=== PATIENT | female | born 1945 | race Caucasian/White ===

== ENCOUNTER 2021-01-27 09:37 | Outpatient (REF) | payer SELFPAY | END 2021-01-27 09:38 | disposition home or self-care (01) | LOC: HO.HAP 09:37 | PROVIDERS: Visit Provider Family Medicine | DX: Z46.1 Encounter for fitting and adjustment of hearing aid (principal) | CPT/HCPCS: V5267 ==

== ENCOUNTER 2021-02-09 06:30 | Day surgery (SDC) | payer MEDICARE, SELFPAY ==
[2021-02-03 12:53] VITALS: BMI 27.8
--- NOTE | 2021-02-08 07:47 | P.CONAN_ITS ---
Documented by User: Anastasiya Mccormack 02/08/21 07:48 HPI - Anesthesia Eval Consult details Narrative: 75yo F for Colonoscopy PMFSH Past Medical History Medical History (Updated 02/09/21 @ 07:37 by Kasia Hernandez) Breast cancer History of paralysis Hyperlipidemia Hypothyroid Vertigo Surgical History Surgical History History of total left hip replacement History of total right hip replacement Hx of bilateral cataract extraction Hx of bilateral oophorectomy Hx of colonoscopy Hx of left mastectomy Hx of right mastectomy Hx of tonsillectomy Social History Social History Are you a primary clinical care manager to a significant other at home: No Do you presently have visiting nurse or other home services: No Smoking Status: Never smoker Use of substances other than those prescribed or required for medical reasons: No Have you been hit, kicked, punched, or otherwise hurt by someone within the past year? If so, by whom?: No Advance Directives: No Advance Directives Information Provided: No Advance Directives on File: No Recently lost weight without trying: No Meds Allergies Allergy/AdvReac Type Severity Reaction Status Date / Time amoxicillin Allergy itching, Verified 02/09/21 06:42 yeast infection codeine Allergy Hives Verified 02/09/21 06:42 ether Allergy paralysis Verified 02/09/21 06:42 hydromorphone Allergy Hypotension Verified 02/09/21 06:42 transparent dressing Allergy Rash Verified 02/09/21 06:42 [Tegaderm] clindamycin AdvReac Diarrhea Verified 02/09/21 06:42 naproxen [From Naprosyn] AdvReac Diarrhea Verified 02/09/21 06:42 Home Medications Medication Instructions Recorded Confirmed Last Taken Type aspirin [Aspir-81] 81 mg PO DAILY 02/03/21 02/03/21 Unknown History atorvastatin 1 tab PO DAILY 02/03/21 02/03/21 Unknown History calcium carbonate-vitamin D3 1 tab PO DAILY 02/03/21 02/03/21 Unknown History [Caltrate 600 plus D] coenzyme Q10 [CoQ-10] 200 mg PO DAILY 02/03/21 02/03/21 Unknown History diazepam 1 tab PO DAILY PRN 02/03/21 02/03/21 Unknown History ibuprofen 1 tab PO TID 02/03/21 02/03/21 Unknown History levothyroxine [Synthroid] 1 tab PO DAILY 02/03/21 02/09/21 02/09/21 06:00 History xrcwqphiprts-svhwsegs-yjppma 1 tab PO DAILY 02/03/21 02/03/21 Unknown History [Centrum Silver] Exam Exam Date and Time: February 08, 2021 0747 Height,Weight and Vital Signs: Height 5 ft 2.5 in Weight 70.307 kg Assessment and Plan Assessment Anesthesia Assessment: Chart Reviewed Documented by User: Kasia Hernandez 02/09/21 07:41 PMFSH Past Medical History Medical History (Updated 02/09/21 @ 07:37 by Kasia Hernandez) Breast cancer History of paralysis Hyperlipidemia Hypothyroid Vertigo Family History Family history of problems with anesthesia: No Surgical History Surgical History History of total left hip replacement History of total right hip replacement Hx of bilateral cataract extraction Hx of bilateral oophorectomy Hx of colonoscopy Hx of left mastectomy Hx of right mastectomy Hx of tonsillectomy History of Problems with Anesthesia: No (But see note above) Social History Social History Are you a primary clinical care manager to a significant other at home: No Do you presently have visiting nurse or other home services: No Smoking Status: Never smoker Use of substances other than those prescribed or required for medical reasons: No Have you been hit, kicked, punched, or otherwise hurt by someone within the past year? If so, by whom?: No Advance Directives: No Advance Directives Information Provided: No Advance Directives on File: No Recently lost weight without trying: No Meds Allergies Allergy/AdvReac Type Severity Reaction Status Date / Time amoxicillin Allergy itching, Verified 02/09/21 06:42 yeast infection codeine Allergy Hives Verified 02/09/21 06:42 ether Allergy paralysis Verified 02/09/21 06:42 hydromorphone Allergy Hypotension Verified 02/09/21 06:42 transparent dressing Allergy Rash Verified 02/09/21 06:42 [Tegaderm] clindamycin AdvReac Diarrhea Verified 02/09/21 06:42 naproxen [From Naprosyn] AdvReac Diarrhea Verified 02/09/21 06:42 Home Medications Medication Instructions Recorded Confirmed Last Taken Type aspirin [Aspir-81] 81 mg PO DAILY 02/03/21 02/03/21 Unknown History atorvastatin 1 tab PO DAILY 02/03/21 02/03/21 Unknown History calcium carbonate-vitamin D3 1 tab PO DAILY 02/03/21 02/03/21 Unknown History [Caltrate 600 plus D] coenzyme Q10 [CoQ-10] 200 mg PO DAILY 02/03/21 02/03/21 Unknown History diazepam 1 tab PO DAILY PRN 02/03/21 02/03/21 Unknown History ibuprofen 1 tab PO TID 02/03/21 02/03/21 Unknown History levothyroxine [Synthroid] 1 tab PO DAILY 02/03/21 02/09/21 02/09/21 06:00 History squxanxkgexe-zzvazmeu-srrjal 1 tab PO DAILY 02/03/21 02/03/21 Unknown History [Centrum Silver] Exam Height,Weight and Vital Signs: Vital Signs Temp Pulse Resp BP Pulse Ox 02/09/21 06:44 97.6 F 80 20 163/85 H 96 Airway Mallampati Class: II TM Dist: >3cm Neck ROM: Full Heart: RRR Lungs: CTAB Assessment and Plan Assessment Anesthesia Assessment: Anesthesia Plan Discussed and Chart Reviewed Final Anesthetic Review NPO: Yes ASA Class: II Final Preanesthetic Review: No Changes in Pt Med Stat, Meds/Allgs Chart Reviewed, Consent Obtained/Reviewed and Anes Risks/Benef Reviewed Patient Risk: Low Procedure Risk: Low Assessment/Block/Sedation in SS: Assess/Block/Sedation-SS Anesthetic Plan Anesthetic Plan: MAC: Disposition: Standard PACU
[2021-02-09 06:44] VITALS: BP 163/85; PULSE 80; RESP 20; TEMP 36.4; O2SAT 96
[2021-02-09] MEDS: Lactated Ringers 1,000 ML 100 ML IVCONT (07:13)
[2021-02-09 08:31] VITALS: BP 91/41; PULSE 75; RESP 12; TEMP 36.8; O2SAT 95
--- NOTE | 2021-02-09 08:33 | PM.OP ---
Brief Operative Note Date of Service: 02/09/21 Pre-op diagnosis: Screening Post-op diagnosis: other (Colon polyp) Procedure: Colonoscopy to cecum and TI with biopsy and removal of polyp Surgeon: Paolo Samano Anesthesia: MAC Estimated blood loss (mL): 2.0 Pathology: other (A. Ascending colon polyp) Condition: stable Disposition: PACU
[2021-02-09 08:46] VITALS: BP 96/60; PULSE 69; RESP 17; TEMP 36.3; O2SAT 98
[2021-02-09 08:51] VITALS: BP 111/60; PULSE 67; RESP 17; O2SAT 97
--- NOTE | 2021-02-09 19:29 | OP_ITS ---
SURGEON: Paolo Samano MD INDICATIONS: The patient presents for evaluation of personal history of tubular adenoma of the colon, family history of colon cancer, and colorectal cancer screening. Full consent has been obtained from her for this, including risks of bleeding and perforation. PREOPERATIVE DIAGNOSIS: POSTOPERATIVE DIAGNOSIS: PROCEDURE PERFORMED: Colonoscopy to cecum and terminal ileum with biopsy and removal of polyp. ESTIMATED BLOOD LOSS: COMPLICATIONS: ANESTHESIA: Monitored anesthesia care. ASSISTANTS: SPECIMENS: PREOPERATIVE DIAGNOSES: Colorectal cancer screening, family history of colon cancer, personal history of tubular adenoma of the colon. POSTOPERATIVE DIAGNOSES: Colorectal cancer screening, family history of colon cancer, personal history of tubular adenoma of the colon, small colon polyp, sigmoid diverticulosis, and internal hemorrhoids. DESCRIPTION OF PROCEDURE: The patient was placed in the left lateral decubitus position. The digital rectal exam revealed no abnormalities. The Olympus video pediatric colonoscope was entered into the rectum and advanced easily to the cecum. Once in the cecum, I did identify normal-appearing cecal pouch with appendiceal orifice and a normal-appearing ileocecal valve. The terminal ileum was cannulated and appeared normal. The scope was withdrawn back in the colon. The entire cecum and ileocecal valve appeared normal. The scope was slowly withdrawn assessing all mucosal surfaces carefully. Preparation was excellent. In the proximal ascending colon, there was a flat 3 mm polyp, which was biopsied and completely removed with cold biopsy forceps. I did not visualize any other polyps, colitis, nor angiodysplasia. There was a mild amount of sigmoid diverticulosis. In the rectum, scope was retroflexed visualizing small internal hemorrhoids, but no other pathology. The rectal mucosa appeared normal. The scope was straightened and withdrawn from the patient. She tolerated the procedure well and was returned to recovery area in stable condition. IMPRESSION: 1. Small colon polyp, status post biopsy removal. 2. Sigmoid diverticulosis. 3. Internal hemorrhoids. PLAN: The results of biopsies will be checked. Given this minimal finding and her age, I do not think she will need any further screening colonoscopies. She will otherwise see me on a p.r.n. basis. CC: Won. MD TOYIN Doran/CADY / [phone]
== END 2021-02-09 09:25 | disposition home or self-care (01) ==
PROVIDERS: PCP Family Medicine; Visit Provider Internal Medicine
PROC: 0DJD8ZZ Inspection of Lower Intestinal Tract, Via Natural or Artificial Opening Endoscopic (ICD-10-PCS; CPT 45378; principal; 2021-02-09 07:30)
DX: Z12.11 Encounter for screening for malignant neoplasm of colon (principal); Z80.0 Family history of malignant neoplasm of digestive organs; Z86.010 Personal history of colon polyps; K63.5 Polyp of colon; K57.30 Diverticulosis of large intestine without perforation or abscess without bleeding; K64.8 Other hemorrhoids; Z85.3 Personal history of malignant neoplasm of breast; Z79.82 Long term (current) use of aspirin; Z79.899 Other long term (current) drug therapy; Z88.0 Allergy status to penicillin; Z88.1 Allergy status to other antibiotic agents; Z88.8 Allergy status to other drugs, medicaments and biological substances
CPT/HCPCS: 45380; 88305

== ENCOUNTER 2021-09-01 12:45 | Outpatient (REF) | payer SELFPAY | END 2021-09-01 12:46 | disposition home or self-care (01) | LOC: HO.HAP 12:45 | PROVIDERS: Visit Provider Family Medicine | DX: Z46.1 Encounter for fitting and adjustment of hearing aid (principal); H90.3 Sensorineural hearing loss, bilateral | CPT/HCPCS: V5267 ==

== ENCOUNTER 2022-05-29 10:28 | Outpatient (REF) | payer SELFPAY | END 2022-05-29 10:29 | disposition home or self-care (01) | LOC: HO.HAP 10:28 | PROVIDERS: Visit Provider Family Medicine | DX: Z13.89 Encounter for screening for other disorder (principal) ==

== ENCOUNTER 2022-06-09 15:22 | Outpatient (REF) | payer SELFPAY | END 2022-06-09 15:23 | disposition home or self-care (01) | LOC: HO.HAP 15:22 | PROVIDERS: Visit Provider Family Medicine | DX: Z46.1 Encounter for fitting and adjustment of hearing aid (principal); H90.3 Sensorineural hearing loss, bilateral | CPT/HCPCS: V5014 ==

== ENCOUNTER 2022-09-13 11:55 | Outpatient (REF) | payer SELFPAY | END 2022-09-13 11:56 | disposition home or self-care (01) | LOC: HO.HAP 11:55 | PROVIDERS: Visit Provider Family Medicine | DX: Z46.1 Encounter for fitting and adjustment of hearing aid (principal); H90.3 Sensorineural hearing loss, bilateral | CPT/HCPCS: V5267 ==

== ENCOUNTER 2023-05-15 12:05 | Outpatient (REF) | payer SELFPAY | END 2023-05-15 12:06 | disposition home or self-care (01) | LOC: HO.HAP 12:05 | PROVIDERS: Visit Provider Family Medicine | DX: Z46.1 Encounter for fitting and adjustment of hearing aid (principal); H90.3 Sensorineural hearing loss, bilateral | CPT/HCPCS: V5267 ==

== ENCOUNTER 2023-05-28 14:26 | Outpatient (REF) | payer MEDICARE, SELFPAY | END 2023-05-28 14:27 | disposition home or self-care (01) | LOC: HO.SH 14:26 | PROVIDERS: Visit Provider Family Medicine | DX: Z01.118 Encounter for examination of ears and hearing with other abnormal findings (principal); H90.A21 Sensorineural hearing loss, unilateral, right ear, with restricted hearing on the contralateral side; H90.A32 Mixed conductive and sensorineural hearing loss, unilateral, left ear with restricted hearing on the contralateral side | CPT/HCPCS: 92557; 92567 ==

== ENCOUNTER 2023-05-28 15:47 | Outpatient (REF) | payer SELFPAY ==
--- NOTE | 2023-05-29 13:03 | MHC.AU.HA3 ---
Hearing Instrument Follow-Up- Binaural Date of Visit: 05/28/23 Right Ear: [place], Model, Color, Serial Number: Marc Iraheta [id number] SN: [id number] Color: [place] Technology Support Analyst Repair Warranty: 06/06/2023 (Remake due to broken shell included new 12 mos warranty) Technology Support Analyst Loss and Damage Warranty: 06/02/2021 Battery Size: 312 Type of Wax Guard: CeruStop Dispensed By: [facility] Date of Fittin05/06/2018 Left Ear: [place], Model, Color, Serial Number: Marc Iraheta [id number] with canal lock SN: [id number] Color: [place] Technology Support Analyst Repair Warranty: 06/02/2021 Technology Support Analyst Loss and Damage Warranty: 06/02/2021 Battery Size: 312 Type of Wax Guard: CeruStop Dispensed By: [facility] Date of Fittin05/06/2018 Follow-Up Summary: Desiree returned for routine hearing aid maintenance and reprogramming following updated audiogram (see separate report). Cleaned hearing aids. Replaced wax guards. Vacuumed microphones and ran through dehumidifier. A listening check demonstrated that the hearing aids are in good working order. Reviewed cleaning including brushing microphones, changing wax guard, and cleaning vent (provided green vent cleaning tool) at Desiree's request. Reprogrammed via [employer] due to change in hearing. Also briefly discussed new hearing aids. Desiree would like to try current hearing aids with programming adjustments first. If she decides to pursue new hearing aids here, she will call to schedule a hearing aid consultation knowing her hearing test is valid for six months. Recommendations: Hearing instrument follow-up or maintenance as needed. Diagnosis Code(s): Primary Diagnosis: H90.A21 SNHL, Unilateral Right Ear, W/Restricted Contralateral Hearing Secondary Diagnosis: H90.A32 Mixed HL, Unilateral, Left Ear, W/Restricted Contralateral Signature: Provider: Mk Briones, [facility]
== END 2023-05-28 15:48 | disposition home or self-care (01) ==
LOC: HO.HAP 15:47
PROVIDERS: Visit Provider Family Medicine
DX: Z46.1 Encounter for fitting and adjustment of hearing aid (principal); H90.A21 Sensorineural hearing loss, unilateral, right ear, with restricted hearing on the contralateral side; H90.A32 Mixed conductive and sensorineural hearing loss, unilateral, left ear with restricted hearing on the contralateral side
CPT/HCPCS: 92593

== ENCOUNTER 2023-06-01 15:25 | Outpatient (REF) | payer SELFPAY ==
--- NOTE | 2023-06-04 13:41 | MHC.AU.HA3 ---
Hearing Instrument Follow-Up- Binaural Date of Visit: 06/01/23 Right Ear: Make, Model, Color, Serial Number: Marc Iraheta [id number] SN: [id number] Color: [place] Machine Shop Supervisor Repair Warranty: 06/06/2023 (Remake due to broken shell included new 12 mos warranty) Machine Shop Supervisor Loss and Damage Warranty: 06/02/2021 Battery Size: 312 Type of Wax Guard: CeruStop Dispensed By: [facility] Date of Fittin05/06/2018 Left Ear: Make, Model, Color, Serial Number: Marc Iraheta [id number] with canal lock SN: [id number] Color: [place] Machine Shop Supervisor Repair Warranty: 06/02/2021 Machine Shop Supervisor Loss and Damage Warranty: 06/02/2021 Battery Size: 312 Type of Wax Guard: CeruStop Dispensed By: [facility] Date of Fittin05/06/2018 Follow-Up Summary: Desiree reported that since the programming changes at her last appointment, her left hearing aid has been making low-pitched whistling sounds when she is moving or is near a person or object. Initially attributed it to feedback but could not replicate in office. [place]an feedback restaurant assistant manager and decreased high frequencies slightly. No feedback noted in office; however, when Desiree was leaving and walking down the ramp, she reportedly heard the noise again. reportedly hears the noise as well. Walked down the ramp with Desiree and heard possible feedback; however, difficult to determine with other background noises outside. Plugged vent with vent plug with no improvement per Desiree. Removed vent plug and returned to previous settings from before updated hearing test at Desiree's request. Discussed left hearing aid not being optimally programmed for hearing loss; however, Desiree reported that she will rely on the changes to the right hearing aid for now. Recommendations: Hearing instrument follow-up or maintenance as needed. Patient will call if problems persist. Diagnosis Code(s):Primary Diagnosis: H90.A21 SNHL, Unilateral Right Ear, W/Restricted Contralateral Hearing Secondary Diagnosis: H90.A32 Mixed HL, Unilateral, Left Ear, W/Restricted Contralateral Signature: Provider: Mk Briones, [facility]
== END 2023-06-01 15:26 | disposition home or self-care (01) ==
LOC: HO.HAP 15:25
PROVIDERS: Visit Provider Family Medicine
DX: Z13.89 Encounter for screening for other disorder (principal)

== ENCOUNTER 2023-07-10 13:31 | Outpatient (REF) | payer SELFPAY ==
--- NOTE | 2023-07-10 15:51 | MHC.AU.HA3 ---
Hearing Instrument Follow-Up- Binaural Date of Visit: 07/10/23 Right Ear: [place], Model, Color, Serial Number: Marc Iraheta [id number] SN: [id number] Color: [place] Cable Supervisor Repair Warranty: 06/06/2023 (Remake due to broken shell included new 12 mos warranty) Cable Supervisor Loss and Damage Warranty: 06/02/2021 Battery Size: 312 Type of Wax Guard: CeruStop Dispensed By: [facility] Date of Fittin05/06/2018 Left Ear: [place], Model, Color, Serial Number: Marc Iraheta [id number] with canal lock SN: [id number] Color: [place] Cable Supervisor Repair Warranty: 06/02/2021 Cable Supervisor Loss and Damage Warranty: 06/02/2021 Battery Size: 312 Type of Wax Guard: CeruStop Dispensed By: [facility] Date of Fittin05/06/2018 Follow-Up Summary: Desiree reported that while she was trying to change the wax guard of her left hearing aid, the metal insert fell out and she could not locate it. Otoscopy clear, AU. With the missing insert, wax guards will no longer stay inserted into her left hearing aid. Advised that she can still use left hearing aid; however, wax may start to build up in the hearing aid. Discussed options of repairing vs replacing. Also reran feedback workforce investment act career manager on the right hearing aid to help with the noise Desiree continues to hear - Did not hear in office today. Desiree decided to proceed with new hearing aids - see separate Hearing Aid Evaluation report. Recommendations: Hearing instrument follow-up or maintenance as needed. Diagnosis Code(s): Primary Diagnosis: H90.A21 SNHL, Unilateral Right Ear, W/Restricted Contralateral Hearing Secondary Diagnosis: H90.A32 Mixed HL, Unilateral, Left Ear, W/Restricted Contralateral Signature: Provider: Mk Briones, [facility]
--- NOTE | 2023-07-10 16:00 | MHC.AU.HA1 ---
Hearing Aid Evaluation Date of Visit: 07/10/23 Historical Information: Description of Hearing: Right Ear: Within normal sloping to moderately-severe rising to moderate sensorineural hearing loss Left Ear: Mild sloping to severe mixed hearing loss Current personal amplification information: Phonak Virto B50-312 fit in May 2018 Summary: Desiree's left hearing aid no longer holds a wax guard. Discussed options including using as-is until too much wax builds up in hearing aid, repairing, using only right hearing aid due to poor discrimination on left, or purchasing new hearing aids. Desiree opted to pursue new hearing aids. Discussed unilateral vs bilateral fitting due to speech discrimination in left ear. Desiree still feels comfortable with two hearing aids and prefers to continue with bilateral fitting. Also discussed option for rechargeable custom hearing aids; however, Desiree would prefer to stay with the Phonak art librarian and battery-powered hearing aids. She also requested a canal lock on the left hearing aid only due to previous issues with retention. Hearing Aid Prescription: Based on the individual?s shared listening needs, communication environments, dexterity, desire for connectivity, and personal preferences, the following prescription for amplification has been made: Right ear: Make, Model, Color: Phonak Virto P50-312 Color: [place] Battery Size: 312 Left ear: Left ear prescription to be same as Right Hearing Aid above: Make, Model, Color: Phonak Virto P50-312 with canal lock Color: [place] Battery Size: 312 Plan of Care: Patient wishes to purchase hearing aids as prescribed Action Taken/Action Needed: [place] Impressions Taken without incident - Sent to [facility] as johnson order. Fitting scheduled 07/26/2023 Comments: Desiree requested a johnson order as she leaves for [place] at the beginning of October. Quoted $100.00 fee for [place] Primary Diagnosis: H90.A21 SNHL, Unilateral Right Ear, W/Restricted Contralateral Hearing Secondary Diagnosis: H90.A32 Mixed HL, Unilateral, Left Ear, W/Restricted Contralateral Signature: Provider: Mk Briones, [facility]
--- NOTE | 2023-07-10 16:02 | MHC.AU.MED ---
Medical Clearance for Hearing Instrumentation Date: 07/10/23 Patient Name: Desiree Kuhn Date of : 1945 Primary Care Provider: Rao Rizzo MD We have seen your patient on 07/10/23 and have determined that they are a candidate for amplification (See accompanying report). Specifically, they would benefit from: Hearing aid use in both ears There is a statute that addresses Medical Evaluation Requirements prior to fitting a patient with a hearing aid. According to [place] statute 265 CMR:6.03(1), (a) General. Except as provided in 265 CMR 6.03(1)(b), a hide salter shall not sell a hearing aid unless the prospective user has presented to the hide salter a written statement signed by a licensed physician that states that the patient's hearing loss has been medically evaluated and the patient may be considered a candidate for a hearing aid. The medical evaluation must have taken place within the preceding six months. Please note: Due to the [place] Statute referenced above, we cannot accept a signature other than that of a licensed physician. DATER ASSEMBLER and PA signatures cannot be accepted. I am in agreement with the above recommendation. There is no medical contraindication for hearing instrumentation. Physician Signature Date Physician Name (Printed)
== END 2023-07-10 13:32 | disposition home or self-care (01) ==
LOC: HO.HAP 13:31
PROVIDERS: Visit Provider Family Medicine
DX: Z46.1 Encounter for fitting and adjustment of hearing aid (principal); H90.3 Sensorineural hearing loss, bilateral
CPT/HCPCS: 92590

== ENCOUNTER 2023-07-10 14:50 | Outpatient (REF) | payer SELFPAY | END 2023-07-10 14:51 | disposition home or self-care (01) | LOC: HO.HAP 14:50 | PROVIDERS: Visit Provider Family Medicine | DX: Z13.89 Encounter for screening for other disorder (principal) ==

== ENCOUNTER 2023-08-01 08:53 | Outpatient (REF) | payer SELFPAY ==
--- NOTE | 2023-08-02 09:40 | MHC.AU.HA2 ---
Hearing Instrument Fitting- Adult- Binaural Date of Visit: 08/01/23 Hearing Instruments Dispensed: Right Ear: Make, Model, Color, Serial Number: Marc Iraheta [id number] SN: [id number] Color: [place] Cop Examiner Repair Warranty: 10/09/2026 Cop Examiner Loss and Damage Warranty: 10/09/2026 [facility] Service Plan: OPTED OUT Battery Size: 312 Type of Wax Guard: CeruStop Left Ear: Make, Model, Color, Serial Number: Marc Iraheta P50-312 with canal lock SN: [id number] Color: [place] Cop Examiner Repair Warranty: 10/09/26 Cop Examiner Loss and Damage Warranty: 10/09/26 [facility] Service Plan: OPTED OUT Battery Size: 312 Type of Wax Guard: CeruStop Summary of Fitting: Performed feedback analyzer and real ear measures. Comfortable at real ear settings. Desiree noticed an immediate improvement in both physical fit and sound quality of hearing aids compared to her old hearing aids. Reviewed care and use. As a long-time hearing aid user, Desiree was comfortable with general maintenance as well as insertion and removal. Paired to cellphone and practiced with phone call in office. Needed to call [employer] for steps to route the audio signal (i.e., settings, accessibility, touch, audio routing, bluetooth headset) as all calls were initially still coming through the phone itself. Although that resolved the issue, Desiree noticed that when calling from the office phone, it would not ring in her hearing aids; however, when her called from his cell phone, it rang in her hearing aids. Audio was then streamed from both phones to the hearing aids. Desiree will monitor this and it will be reassessed at follow up. Did not pair to aleksey at this time. Recommendations: A hearing instrument follow-up was scheduled. Diagnosis Code(s): Primary Diagnosis: H90.A21 SNHL, Unilateral Right Ear, W/Restricted Contralateral Hearing Secondary Diagnosis: H90.A32 Mixed HL, Unilateral, Left Ear, W/Restricted Contralateral Signature: Provider: Mk Briones, [facility]
== END 2023-08-01 08:54 | disposition home or self-care (01) ==
LOC: HO.HAP 08:53
PROVIDERS: Visit Provider Family Medicine
DX: Z46.1 Encounter for fitting and adjustment of hearing aid (principal); H90.3 Sensorineural hearing loss, bilateral
CPT/HCPCS: V5260; V5299

== ENCOUNTER 2023-08-16 11:45 | Outpatient (REF) | payer SELFPAY | END 2023-08-16 11:46 | disposition home or self-care (01) | LOC: HO.HAP 11:45 | PROVIDERS: Visit Provider Family Medicine | DX: Z13.89 Encounter for screening for other disorder (principal) ==

== ENCOUNTER 2023-08-30 11:29 | Outpatient (REF) | payer SELFPAY | END 2023-08-30 11:30 | disposition home or self-care (01) | LOC: HO.HAP 11:29 | PROVIDERS: Visit Provider Family Medicine | DX: Z13.89 Encounter for screening for other disorder (principal) ==

== ENCOUNTER 2023-09-11 14:54 | Outpatient (REF) | payer SELFPAY | END 2023-09-11 14:55 | disposition home or self-care (01) | LOC: HO.HAP 14:54 | PROVIDERS: Visit Provider Family Medicine | DX: Z13.89 Encounter for screening for other disorder (principal) ==

== ENCOUNTER 2023-10-01 15:26 | Outpatient (REF) | payer SELFPAY | END 2023-10-01 15:27 | disposition home or self-care (01) | LOC: HO.HAP 15:26 | PROVIDERS: Visit Provider Family Medicine | DX: Z46.1 Encounter for fitting and adjustment of hearing aid (principal); H90.A21 Sensorineural hearing loss, unilateral, right ear, with restricted hearing on the contralateral side; H90.A32 Mixed conductive and sensorineural hearing loss, unilateral, left ear with restricted hearing on the contralateral side | CPT/HCPCS: V5267 ==

== ENCOUNTER 2024-03-18 12:59 | Outpatient (REF) | payer SELFPAY ==
--- NOTE | 2024-03-18 14:20 | MHC.AU.HA3 ---
Hearing Instrument Follow-Up- Binaural Date of Visit: 03/18/24 Right Ear: [place], Model, Color, Serial Number: Marc Iraheta [id number] SN: [id number] Color: [place] Diesel Fitter Mechanic Repair Warranty: 10/09/2026 Diesel Fitter Mechanic Loss and Damage Warranty: 10/09/2026 [facility] Service Plan: OPTED OUT Battery Size: 312 Type of Wax Guard: CeruStop Dispensed By: [facility] Date of Fittin08/01/2023 Left Ear: [place], Model, Color, Serial Number: Marc Iraheta P50-312 with canal lock SN: [id number] Color: [place] Diesel Fitter Mechanic Repair Warranty: 10/09/26 Diesel Fitter Mechanic Loss and Damage Warranty: 10/09/26 [facility] Service Plan: OPTED OUT Battery Size: 312 Type of Wax Guard: CeruStop Dispensed By: [facility] Date of Fittin08/01/2023 Follow-Up Summary: Desiree returned to have her hearing aids remade, per previous notes. Initially, Desiree only wanted to send one hearing aid out at a time. However, she ultimately decided to send both hearing aids out for remake at the same time. She also inquired about switching to rechargeable hearing aids. Explained trial period is over, hearing aids cannot be returned, and rechargeable customs would be different chiropractor assistant. Impressions taken, bilaterally, without incident. Sent to [employer] with both hearing aids for remakes. Desiree is using her old hearing aids in the meantime. *Desiree requested expedited service. Quoted $20.00 for 3-5 business days, due at warp picker. Recommendations: Patient will be contacted when materials have arrived. Diagnosis Code(s): Primary Diagnosis: H90.A21 SNHL, Unilateral Right Ear, W/Restricted Contralateral Hearing Secondary Diagnosis: H90.A32 Mixed HL, Unilateral, Left Ear, W/Restricted Contralateral Signature: Provider: Mk Briones, [facility]
== END 2024-03-18 13:00 | disposition home or self-care (01) ==
LOC: HO.HAP 12:59
PROVIDERS: Visit Provider Family Medicine
DX: Z13.89 Encounter for screening for other disorder (principal)

== ENCOUNTER 2024-03-28 13:32 | Outpatient (REF) | payer SELFPAY | END 2024-03-28 13:33 | disposition home or self-care (01) | LOC: HO.HAP 13:32 | PROVIDERS: Visit Provider Family Medicine | DX: Z46.1 Encounter for fitting and adjustment of hearing aid (principal); H90.A21 Sensorineural hearing loss, unilateral, right ear, with restricted hearing on the contralateral side; H90.A32 Mixed conductive and sensorineural hearing loss, unilateral, left ear with restricted hearing on the contralateral side | CPT/HCPCS: 92700; V5299 ==

== ENCOUNTER 2024-11-03 12:37 | Outpatient (REF) | payer SELFPAY | END 2024-11-03 12:38 | disposition home or self-care (01) | LOC: HO.HAP 12:37 | PROVIDERS: Visit Provider Family Medicine | DX: Z46.1 Encounter for fitting and adjustment of hearing aid (principal); H90.A21 Sensorineural hearing loss, unilateral, right ear, with restricted hearing on the contralateral side; H90.A32 Mixed conductive and sensorineural hearing loss, unilateral, left ear with restricted hearing on the contralateral side | CPT/HCPCS: V5267 ==

== ENCOUNTER 2025-05-04 09:27 | Outpatient (REF) | payer MEDICARE, SELFPAY ==
--- OUTSIDE RECORDS SUMMARY | 2025-05-04 09:51 | XMS_ITS | Data Portability ---
Author Organization [facility] Address [address] [place] [address] Care Team Providers Care Die Try Out Worker Name Role Phone KEYANNA GEE Primary Care Provider JEREMY VILLALOBOS Primary Care Provider [phone] Assessment No assessment recorded. Plan of Treatment Reminders Order Date Submit Date Provider Last Modified By Organization Details Last Modified Time Details Appointments None recorded . Lab None recorded . Referral None recorded . Procedures None recorded . Surgeries None recorded . Imaging electroc ardiogra m 2023 024 [email or web address] Not available 4 10:23:47 electroc ardiogra m 2022 023 [email or web address] Not available 3 10:08:58 electroc ardiogra m 2020 021 [email or web address] Not available 1 08:57:03 CT, coronary calcium score 2020 021 [facility], [address] [place], [address], 2 15:14:08 Medication Orders None recorded . Patient TargetsNo targets recorded. Patient Instructions Encounter Date Encounter Id Patient Instructions Last Modified By Organization Details Last Modified Time 11/03/2021 [id number] The patient has been experiencing shortness of breath with exertion it sounds more to be on the basis of physical deconditioning but due to that and cardiovascular risk factor with high CRP we will prognosticate cardiac risk with a coronary calcium score. If her calcium score is elevated then we will proceed with a Lexiscan Myoview stress test. We may also have to adjust her statin dose although with a slight transaminase elevation we may have to consider a PCSK9 inhibitor [email or web address] Not available 11/03/2021 09:20:48 12/15/2022 [id number] medical record request* - Please send most recent lab, thank you [email or web address] Not available 12/22/2022 14:12:50 learning about healthy weight [email or web address] Not available 12/15/2022 09:47:56 hypothyroidism: care instructions Not available 12/15/2022 09:47:56 she needs to monitor her bp at home and keep bp diary. she may need bp meds. she eats a lot of restaurant food including pickles. [email or web address] Not available 12/15/2022 10:01:11 11/27/2023 [id number] cv status is stable. need to review lipid panel which she will take in january. [email or web address] Not available 11/27/2023 10:18:02 Reason for Referral None Reported. Results Created Date Observation Date Name Description Value Unit Range Abnormal Flag Note LastModifiedBy Organization Detail LastModifiedTime 11/03/20 [facility] rocar diogr am No observ ation record ed. [email or web address] [facility] [address] [place], [address], 11/03/2021 08:55:44 11/03/20 [facility] rocar diogr am No observ ation record ed. Not Available 2020 08:34:31 11/07/19 22 11/07/2021 CT, coron gennaro calci um score No observ ation record ed. [email or web address] [facility] [address] [facility] [address], [place], [address], 11/08/2021 16:35:09 12/15/[address] [facility] rocar diogr am No observ ation record ed. [email or web address] [facility] [address] [place], [address], 12/15/2022 09:47:51 02/10/20 23 elect rocar diogr am No observ ation record ed. Not Available 2022 09:32:11 11/27/19 24 elect rocar diogr am No observ ation record ed. [email or web address] [facility] [address] [place], [address], 11/27/2023 10:08:17 11/27/19 24 elect rocar diogr am No observ ation record ed. Not Available 2023 09:50:59 Result Notes None recorded. Problems Name Problem SNOMED Code Status Onset Date Resolution Date Notes Provider Name and Address Organization Details Recorded Time Hypothyroi dism 70652043 Active 2020 Hermilo Griffith MD [address] [facility] ,[facility], [place], [address], [facility] 1 08:44:38 Dyslipidem ia 590711216 Active 2020 Hermilo Griffith MD [address] [place] [address] ,[address], [address] [place] [address], [facility] 1 08:44:48 Osteoarthr itis 067712128 Active 2020 Hermilo Griffith MD [address] [place] [address] ,[facility] [address], [place], [address] [place] [address], [facility] 1 08:45:36 History of malignant neoplasm of breast 947691180 Active 2020 left masectomy took tamoxifen no chemo or RT Hermilo Griffith MD [address] [facility] ,[facility], [place], [address] [place] [address], [facility] 1 08:46:59 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 Procedures Surgical History Date Name Laterality Status Provider Name and Address Organization Details Recorded Time Mastectomy completed Val Marychuy [facility] 11/03/2021 08:27:05 Orthopedic Surgery completed Val Perrin [facility] 11/03/2021 08:27:05 Cataract Surgery completed Valsarath [facility] 11/03/2021 08:27:05 Other Surgeries completed Valsarath Perrin [facility] 11/03/2021 08:27:05 Joint Replacement completed Val Perrin [facility] 11/03/2021 08:27:05 Breast Surgery (Lumpectomy, Biopsy, Implants) completed Valsarath Perrin [facility] 11/03/2021 08:27:05 Cancer Surgery completed Val Marychuy [facility] 11/03/2021 08:27:05 Imaging Results None recorded. Procedure Notes None recorded. Medical Equipment None Reported. Allergies Allergen ID Allergen Name Allergen Category Reaction Reaction Severity Criticality Documentation Date Start Date Code Code System Note Provider Name and Address Organization Details Recorded Time 744412 codeine medicatio n rash Not available Not available 11/03/2021 2670 [facility] 08:27:04 714411 hydrocodo ne Not available other Not available Not available 11/03/2021 5489 Rx[facility] 08:27:04 628338 lactose food,medi cation Not available Not available Not available 11/27/2023 6211 RxNorm [facility] 4 09:52:34 Medications Name Sig Start Date Stop Date Status Note LastModified by Organization Details LastModified Time desonide 0.05 % topical cream APPLY ONCE DAILY TO FACE NEEDED 11/27 completed Not Available Not Available Not Available clindamyci n HCl 300 mg capsule TAKE 2 CAPSULES 1 HOUR PRIOR TO DENTAL VISIT active Not Available Not Available No t Available atorvastat in 10 mg tablet 1 po q daily active Not Available Not Available No t Available fosfomycin tromethami ne 3 gram oral packet DISSOLVE 1 PACKET IN 4 OUNCES OF WATER AND TAKE ONCE 11/27 completed Not Available Not Available Not Available Synthroid 125 mcg tablet take 1 po 6 days week active Not Available Not Available No t Available prednisone 20 mg tablet 11/03 completed Not Available Not Available Not Available fluorourac il 5 % topical cream APPLY ONCE DAILY TO UPPER LIP FOR 10-14 DAYS TOLERATE D. 11/27 completed Not Available Not Available Not Available ciprofloxa cami 250 mg tablet 12/15 completed Not Available Not Available Not Available ciprofloxa cami 500 mg tablet 11/03 completed Not Available Not Available Not Available triamcinol one acetonide 0.1 % topical cream APPLY TWICE DAILY TO AFFECTED AREA ON LEFT LOWER LEG FOR 2 WEEKS NEEDED. active Not Available Not Available No t Available doxycyclin e monohydrat e 50 mg tablet TAKE 1 TABLET BY MOUTH TWICE A DAY 12/15 completed Not Available Not Available Not Available IBU 600 mg tablet Take 1 tablet 3 times a day by oral route. active 1 po qhs Not Available Not Available Not Available nystatin 100,000 unit/gram topical cream APPLY TO AFFECTED AREAS ON ABDOMEN FOLDS AND CREASES 2 TIMES DAILY FOR 3 WEEKS 11/27 completed Not Available Not Available Not Available mupirocin 2 % topical ointment 11/03 completed Not Available Not Available Not Available methylpred nisolone 4 mg tablets in a dose pack 12/15 completed Not Available Not Available Not Available albuterol sulfate HFA 90 mcg/actuat ion aerosol inhaler prn 12/15 completed Not Available Not Available Not Available diazepam 5 mg tablet TAKE 1 TABLET BY MOUTH EVERY DAY NEEDED FOR SPASM 12/15 completed Not Available Not Available Not Available tobramycin 0.3 %-dexameth asone 0.1 % eye drops,susp ension INSTILL 1 DROP INTO RIGHT EYE 4 TIMES A DAY 12/15 completed Not Available Not Available Not Available Adult Low Dose Aspirin 81 mg tablet,del ayed release TAKE 1 TABLET (81 MG) BY ORAL ROUTE twice week active Not Available Not Available No t Available ciclopirox 0.77 % topical cream 11/03 completed Not Available Not Available Not Available Clindamyci n 11/27 completed for dental work Not Available Not Available Not Available sodium fluoride 1.1 %-potassiu m nitrate 5 % dental paste 11/03 completed Not Available Not Available Not Available COVID-19 At-Home Test kit FOLLOW DIRECTIO NS ON BOX 11/27 completed Not Available Not Available Not Available Vitals Date Recorded Body height Heart rate Systolic blood pressure Diastolic blood pressure Provider Name and Address Organization Details Last Updated DateTime 11/27/2023 160.02 cm 72 /min 160 mm[Hg] 82 mm[Hg] Val Perrin [facility] 11/27/2023 09:47:59 Date Recorded Body weight Body mass index (BMI) Body height Heart rate Systolic blood pressure Diastolic blood pressure Systolic blood pressure Diastolic blood pressure Provider Name and Address Organization Details Last Updated DateTime 3 85911.7 4 g 29.2 kg/m2 160.02 cm 80 /min 168 mm[Hg] 80 mm[Hg] 144 mm[Hg] 78 mm[Hg] Val Perrin [facility] 3 09:39:54 Date Recorded Body height Body mass index (BMI) Body weight Heart rate Systolic blood pressure Diastolic blood pressure Provider Name and Address Organization Details Last Updated DateTime 1 160.02 cm 29.4 kg/m2 98960.3 3 g 80 /min 170 mm[Hg] 86 mm[Hg] Val Perrin [facility] 1 08:32:05 Social History Question Answer Notes LastModified by Organizat ion Details LastModified Time Tobacco Smoking Status Never Smoker Val Perrin [facility] 11/03/2021 08:27:05 Do You Have An Advance Directive? Yes Information not available 11/03/2021 Are You Blind Or Do You Have Difficulty Seeing? No Information not available 11/03/2021 Is Blood Transfusion Acceptable In An Emergency? Yes Information not available 11/03/2021 What Is Your Level Of Caffeine Consumption? Moderate Information not available 11/03/2021 Are You Deaf Or Do You Have Serious Difficulty Hearing? Yes Information not available 11/27/2023 What Type Of Diet Are You Following? REGULAR Information not available 11/03/2021 Which Of Your Hands Is Dominant? Right Information not available 11/03/2021 What Was The Date Of Your Most Recent Tobacco Screening? 11/27/2023 Information not available 11/27/2023 Do You Have Any Pets? No Information not available 11/03/2021 What Is Your Relationship Status? Information not available 11/03/2021 How Many Days In The Past Year Have You Consumed 4 Or More Drinks? 20 Information no t available 11/03/2021 Sex: Unknown Functional Status Question Answer Note LastModified by Organizat ion Details LastModified Time Do you use any illicit or recreational drugs? No Information not available 11/03/2021 Do you or have you ever used any other forms of tobacco or nicotine? No Information not available 11/03/2021 What is your level of alcohol consumption? Occasional Information not available 11/03/2021 Are you currently employed? No Information not available 11/03/2021 Are you able to care for yourself? Yes Information n ot available 11/03/2021 What is your exercise level? Occasional Information not available 11/03/2021 Mental Status Question Answer Note LastModified by Organization D etails LastModified Time Do you feel stressed (tense, restless, nervous, or anxious, or unable to sleep at night)? FR5724-9 Information not available 11/03/2021 Family History Relationship Description Onset Age of this Age Resolved Age Notes LastModified by Organization Details LastModified Time Mother Family history of stroke Not available 2020 08:27:04 Mother Heart disease 95 takosu roxi stress cardio myopat hy Not available 11/03/2021 08:49:31 Mother Malignant tumor of colon Not available 2020 08:27:04 Mother Hypertensive disorder Not available 2020 08:27:04 Medical History Condition Response Eye Problems (Glaucoma, Retinopathy, Mac ular Degeneration) Y High Cholesterol (Hyperlipidemia) Y Hearing Loss Y Cancer Y Thyroid Disease/Disorder Y Gynecological HistoryNo gynecological history recorded. Obstetrics History GPAL:G 0 P 0 0 0 0 Immunizations Vaccine Type Date Status Note Provider Nam e and Address Organization Details Recorded Time COVID-19, mRNA, LNP-S, PF, 30 mcg/0.3 mL dose, roxane-sucrose 02/16/2022 completed Val Perrin [facility] 12/15/2022 09:33:40 Past Encounters Encounter ID Performer Location Encounter Start Date Encounter Closed Date Diagnosis/Indication Diagnosis SNOMED-CT Code Diagnosis ICD10 Code Diagnosis Note [id number] Hermilo Griffith [facility] [address] [place] [address] 11/03/2021 08:16:39 11/03/2021 12:40:01 Atypical angina 021048690 I20.8 having sob as per hpi. Dyslipidemia 359091142 E 78.5 on atorvastat in [id number] Hermilo Griffith MD [facility] ay [address] [place] [address] 12/15/2022 09:22:50 12/15/2022 10:08:58 Body mass index 25-29 - overweight 844585140 Z68.25 Dyslipidemia 111655944 E 78.5 on atorvastat in Atypical angina 76194391 2 I20.8 having sob as per hpi. Hypothyroidism 63506170 E03.9 Calcificat ion of coronary artery 488696467 I25.84 LAD 55 RCA 47 [id number] Hermilo Griffith MD [facility] [address] [place] [address] 11/27/2023 09:43:47 11/27/2023 10:23:47 Calcification of coronary artery 477196860 I25.84 LAD 55 RCA 47 Dyslipidemia 605031494 E 78.5 on atorvastat in 10 mg a day Health Concerns Section Related Observation LastModified by Organization Detai ls LastModified Time None Recorded Concern Status LastModified by Organization Details LastModified Time None Recorded Advance Directives Directive Y: Payers Insurance Date Sequence Insurance Name Policy Number Policy Hilliard Covered Member ID Hilliard Member ID Guarantor Name 12/20/2024 1 [place] Desiree March [id number] 3 Desiree 12/20/2024 2 [place]) [id number] Desiree March [id number] March Notes Date Note Type Note Provider Name and Address Organization Details Recorded Time 11/03/2021 text/html Here for elevate d crp. no cardiac hx. No hx cad. she is sedentary. denies cp or sob. sob if she walks too fast . uses walker.she denies HTN,CVA, Hermilo Griffith MD [address], [place], [address], [facility] 11/03/2021 09:21:00 12/15/2022 text/html ambulating with walker. she denies cp or sob. no falling. initial evaluation-Here for elevated crp. no cardiac hx. No hx cad. she is sedentary. denies cp or sob. sob if she walks too fast . uses walker.she denies HTN,CVA, Hermilo Griffith MD [address], [place], [address], [facility] 12/15/2022 10:01:40 11/27/2023 text/html ambulating with walker. she denies cp or sob. no falling. she takes ibuprofen 600 mg each night. her triglycerides are very high per pt. she is trying to rehab to stop using walker. initial evaluation-Here for elevated crp. no cardiac hx. No hx cad. she is sedentary. denies cp or sob. sob if she walks too fast . uses walker.she denies HTN,CVA, Hermilo Griffith MD [address], [place], [address], [facility] 11/27/2023 10:19:07 OBGyn Episode No OBEpisode recorded.
[2025-05-04 09:56] LABS: MANUAL DIFF FLAG NO
[2025-05-04 10:36] LABS: Basophils Absolute Auto 0.1 X10*3/uL (0.0-0.2); Basophils Percent Auto 0.6 % (0-2); Eosinophils Absolute Auto 0.1 X10*3/uL (0.0-0.4); Eosinophils Percent Auto 1.5 % (0-4); Hematocrit 37.1 % (37.0-47.0); Hemoglobin 11.7 g/dl (12.0-16.0); Imm Gran Abs Auto 0.05 X10*3/uL (0.00-0.03); Imm Gran Pct Auto 0.6 % (0.0-0.4); Lymphocytes Absolute Auto 1.4 X10*3/uL (1.2-4.9); Lymphocytes Percent Auto 17.6 % (20-40); Mean Corpuscular HGB Conc 31.5 g/dl (31.0-35.0); Mean Corpuscular Hemoglobin 28.1 pg (27.0-33.0); Mean Platelet Volume 9.1 fL (9.4-12.3); Monocytes Absolute Auto 0.6 X10*3/uL (0.1-1.2); Monocytes Percent Auto 7.9 % (2-11); Neutrophils Absolute Auto 5.7 x10*3/uL (2.0-8.3); Neutrophils Percent Auto 71.8 % (45-73); Platelet Count 266 X10*3/uL (160-400); Red Blood Count 4.17 X10*6/uL (4.20-5.50); Red Cell Distribution Width 15.9 % (11.0-16.0); White Blood Count 7.9 X10*3/uL (4.8-10.8)
[2025-05-04 10:40] LABS: INTERNATIONAL NORM RATIO 1.3 (0.9-1.1); Prothrombin Time 14.5 SEC (10.9-12.4)
[2025-05-04 11:15] LABS: Alanine Aminotransferase 20 U/L (0-31); Alkaline Phosphatase 69 U/L (39-117); Anion Gap 15 (12-20); Aspartate Amino Transferase 17 U/L (5-31); Bilirubin Direct 0.1 mg/dL (0.0-0.5); Bilirubin Total 0.4 mg/dL (0.0-1.0); Blood Urea Nitrogen 21 mg/dL (9-16); Calcium 9.7 mg/dL (8.4-10.2); Carbon Dioxide 22 mmol/L (22-29); Chloride 108 mmol/L (96-108); Estimated Glomerular Filt Rate > 60; Glucose Random 118 mg/dL (60-115); Potassium 3.9 mmol/L (3.3-5.1); Sodium 141 mmol/L (135-145); Total Protein 6.7 g/dL (6.5-8.0)
== END 2025-05-04 09:28 | disposition home or self-care (01) ==
LOC: HO.LAB 09:27
PROVIDERS: PCP Family Medicine; Visit Provider Internal Medicine
DX: K80.50 Calculus of bile duct without cholangitis or cholecystitis without obstruction (principal); K80.20 Calculus of gallbladder without cholecystitis without obstruction
CPT/HCPCS: 36415; 80048; 80076; 85025; 85610

== ENCOUNTER 2025-10-07 15:33 | Outpatient (REF) | payer SELFPAY ==
--- OUTSIDE RECORDS SUMMARY | 2024-12-29 10:45 | XMS_ITS ---
Author Organization [facility] [place] Address [address] [place] [address] Care Team Providers Care Experimental Worker Name Role Phone Rao Rizzo MD Primary Care Provider Unava swathi Ghotra, Carlos Unavailable [phone] Cate Jarquin Unavailable [phone] Encounters Encounter Location Date Provider Diagnosis [address] [address] 12/29/2024 Cate Jarquin Plan Of Treatment Next Appt Details Provider Name:Carlos Ghotra , 11/20/2025 12:00:00 PM, [address] [place] [address], [phone], Provider Name:Carlos Ghotra , 02/12/2026 11:00:00 AM, [address] [place] [address], [phone], Progress Notes * Desiree DELCID GDOB:1945 (80 yo F)Acc No.[id number]:12/29/2024 Progress Note Patient: Desiree GARCIA Provider: Yoni Jarquin DPM :1945 A ge:79 Y S ex:Female Date:12/29/2024 Address: [phone] Pcp:Rao Rizzo MD Subjective: * Chief Complaints: * * Medical History: Objective: * Vitals: Assessment: Plan: * Treatment: * Images: * The named appointment provid er may or may not be the originator of this progress note, and it is not deemed complete until electronically signed by the appointment provider. Sign off status: Pending * Provider: Yoni Jarquin DPM Date: 0 12/29/2024 Generated for Janes velasco/Eleazar/Carlos Enrique on: 12/08/2024 06:29 PM EST
--- OUTSIDE RECORDS SUMMARY | 2025-02-27 08:15 | XMS_ITS ---
Author Organization [facility] sharon Bulpitt Address [address] [place] [address] Care Team Providers Care Toe Puncher Name Role Phone Rao Rizzo MD Primary Care Provider UnaCarlos Morales [phone] Encounters Encounter Location Date Provider Diagnosis [address] [address] 02/27/2025 Carlos Ghotra Plan Of Treatment Next Appt Details Provider Name:Carlos Ghotra , 11/20/2025 12:00:00 PM, [address] [place] [address], [phone], Provider Name:Carlos Ghotra , 02/12/2026 11:00:00 AM, [address] [place] [address], [phone], Progress Notes * Desiree DELCID GDOB:1945 (80 yo F)Acc No.[id number]:02/27/2025 Progress Note Patient: Desiree GARCIA Provider: Daniel Ghotra DPM :1945 A ge:79 Y S ex:Female Date:02/27/2025 Address: [id number] Pcp:Rao Rizzo MD Subjective: * Chief Complaints: * * Medical History: Objective: * Vitals: Assessment: Plan: * Treatment: * Images: * The named appointment provid er may or may not be the originator of this progress note, and it is not deemed complete until electronically signed by the appointment provider. Sign off status: Pending * Provider: Daniel Ghotra DPM Date: 0 02/27/2025 Generated for Janes Hughes on: 12/08/2024 06:29 PM EST
--- OUTSIDE RECORDS SUMMARY | 2025-03-03 08:30 | XMS_ITS ---
Author Organization [facility] sharon [place] Address [address] [facility] [address] Care Team Providers Care Public Relations Name Role Phone Rao Rizzo MD Primary Care Provider UnaCarlos Morales [phone] Encounters Encounter Location Date Provider Diagnosis [address] [address] 03/03/2025 Carlos Ghotra Plan Of Treatment Next Appt Details Provider Name:Carlos Ghotra , 11/20/2025 12:00:00 PM, [address] [place] [address], [phone], Provider Name:Carlos Ghotra , 02/12/2026 11:00:00 AM, [address] [place] [address], [phone], Progress Notes * Desiree DELCID GDOB:1945 (80 yo F)Acc No.[id number]:03/03/2025 Progress Note Patient: Desiree GARCIA Provider: Daniel Ghotra DPM :1945 A ge:79 Y S ex:Female Date:03/03/2025 Address: [id number] Pcp:Rao Rizzo MD Subjective: * Chief Complaints: * * Medical History: Objective: * Vitals: Assessment: Plan: * Treatment: * Images: * The named appointment provid er may or may not be the originator of this progress note, and it is not deemed complete until electronically signed by the appointment provider. Sign off status: Pending * Provider: Daniel Ghotra DPM Date: 0 03/03/2025 Generated for Janes Hughes on: 12/08/2024 06:30 PM EST
--- OUTSIDE RECORDS SUMMARY | 2025-10-01 23:59 | XMS_ITS | Continuity of Care Document ---
Author Organization [facility] Address [address] [place] [address]- Care Team Providers Care Canine Service Teacher Name Role Phone Matthias CONTRERAS, Rao Peters Primary [id number]s): 09/01/25 - 10/01/25 [facility] [address] [place] [address] Encounter Type: Triage Allergies, Adverse Reactions, Alerts Substance Criticality Severity Reaction Reaction Severity Status codeine Hives Active cefuroxime Diarrhea Active amoxicillin Itching Active Naprosyn D - Diarrhea Active Bactrim Feels everythin g is spinning round Active Septocaine PROLONGED NUMBI NG never wears off Active LMX 4 with Tegaderm Hives Blistering Active Other Environmental Allergy Paralysis of lower limb Ether anesthesia vaporizer Active hydromorphone-ropivaca ine Hypotensive episode Active Immunizations Given and Recorded Vaccine Date Status Refusal Reason influenza virus vaccine, inactivated 08/11/24 Baldomero rded influenza virus vaccine, inactivated 08/20/23 Baldomero rded influenza virus vaccine, inactivated 08/08/22 Baldomero rded influenza virus vaccine, inactivated 08/02/21 Baldomero rded influenza virus vaccine, inactivated 07/20/20 Baldomero rded influenza virus vaccine, inactivated 08/13/18 Baldomero rded influenza virus vaccine, inactivated 1, 2 08/16/17 Recorded influenza virus vaccine, inactivated 08/09/16 Baldomero rded [id number] 12y+ bivalent booster vax 04/05/23 Recorded [id number] 12y+ bivalent booster vax 07/22/22 Recorded SARS-CoV-2 (COVID-19) mRNA BNT-162b2 vac 3 02/16/22 Recorded SARS-CoV-2 (COVID-19) mRNA BNT-162b2 vac 08/18/21 Recorded SARS-CoV-2 (COVID-19) mRNA BNT-162b2 vac 12/23/20 Recorded SARS-CoV-2 (COVID-19) mRNA BNT-162b2 vac 12/02/20 Recorded Influenza Virus Vaccine (oldterm) 08/14/19 Recorde d zoster vaccine, inactivated 07/25/19 Recorded zoster vaccine, inactivated 04/15/19 Recorded tetanus/diphtheria/pertussis, acel(Tdap) 4 03/12/18 Given tetanus/diphtheria/pertussis, acel(Tdap) 5 08/22/07 Recorded pneumococcal 13-valent vaccine 6 04/08/15 Recorded pneumococcal 23-valent vaccine 7 04/16/12 Recorded Zoster Vaccine Live 8 05/24/10 Recorded tetanus-diphtheria toxoids (Td) 9 02/01/07 Given Pneumococcal Vaccine (oldterm) 10 02/01/07 Given 1Location History: [facility] 2Result Comment: [08/23/2017] [place] 3Result Comment: [place] 4Result Comment: [03/12/2018] [facility] [id number] 5Result Comment: [03/06/2017] Dr Maldonado 6Location History: [facility] 7Result Comment: [03/06/2017] Dr Maldonado 8Result Comment: [03/06/2017] Dr Maldonado 9Admin Note: pt states within 10 yrs 10Admin Note: pt does not take Medications atorvastatin 10 mg oral tablet 1 tablet, By Mouth, Daily, # 90 tablet, 1 Refills, Maintenance, 09/09/25 7:29:00 AM EST, [facility], 157, cm, 08/26/25 9:49:00 EDT, Height, 70.2, kg, 07/22/25 13:04:00 EDT, Dry Weight Start Date: 09/09/25 Status: Ordered Medication Dispense Status: Completed Quantity: 90.0 Unit: tablet Total Allowed Fills: 1 Fills Dispensed: 0 azithromycin 500 mg oral tablet 1 tablet = 500 mg, By Mouth, Once, One hour prior to dental procedure., # 1 tablet, 5 Refills, SoftStop, 03/14/25 3:41:00 PM EDT, [facility]/pharmacy #[id number], Partial fill upon patient request if the prescription is for a schedule II opioid drug., 157, cm, 02/17/25 10:04:00 EDT, Height, 70.4, kg, 02/17/25 10:04:00 EDT, Dry Weight Start Date: 03/14/25 Status: Ordered Medication Dispense Status: Completed Quantity: 1.0 Unit: tablet Total Allowed Fills: 6 Fills Dispensed: 0 Caltrate 600 + D 1 tablet, By Mouth, 2 times a day, 0 Refills, Maintenance, 03/06/17 2:32:32 PM EDT Start Date: 03/06/17 Status: Ordered Medication Dispense Status: Completed Total Allowed Fills: 1 Fills Dispensed: 0 cefpodoxime 200 mg oral tablet TAKE 1 TABLET BY MOUTH TWICE A DAY FOR 7 DAYS Start Date: 07/13/25 Status: Ordered Medication Dispense Status: Completed Total Allowed Fills: 1 Fills Dispensed: 0 Centrum Silver Women's 1 tablet, By Mouth, Daily, 0 Refills, Maintenance, 03/06/17 2:32:16 PM EDT Start Date: 03/06/17 Status: Ordered Medication Dispense Status: Completed Total Allowed Fills: 1 Fills Dispensed: 0 cephalexin monohydrate 500 mg oral capsule 1 capsule = 500 mg, By Mouth, Daily, 0 Refills, Maintenance, 06/16/25 9:29:00 AM EDT, Partial fill upon patient request if the prescription is for a schedule II opioid drug. Start Date: 06/16/25 Status: Ordered Medication Dispense Status: Completed Total Allowed Fills: 1 Fills Dispensed: 0 clindamycin 300 mg oral capsule 2 capsule = 600 mg, By Mouth, 1 HOUR BEFORE INVASIVE PROCEDURES/ DENTAL PROCEDURES ( B HIP REPLACEMENTS), 0 Refills, Maintenance, 11/13/24 11:04:00 AM EST, Partial fill upon patient request if the prescription is for a schedule II opioid drug. Start Date: 11/13/24 Status: Ordered Medication Dispense Status: Completed Total Allowed Fills: 1 Fills Dispensed: 0 CoQ10 0 Refills, Maintenance, 06/18/25 11:22:00 AM EDT, Partial fill upon patient request if the prescription is for a schedule II opioid drug. 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, # 1 each, Maintenance, ICD 10 code, L65.8 and T 45.1X5 A, 12/09/24 11:56:00 AM EST, Supply Start Date: 12/09/24 Status: Ordered Medication Dispense Status: Completed Quantity: 1.0 Unit: each Total Allowed Fills: 1 Fills Dispensed: 0 estradiol 0.1 mg/g vaginal cream USE DIRECTED: 1 GRAM PER VAGINA 3X PER WEEK Start Date: 07/13/25 Status: Ordered Medication Dispense Status: Completed Total Allowed Fills: 1 Fills Dispensed: 0 fluconazole 150 mg oral tablet 1 tablet = 150 mg, By Mouth, Once, Repeat dose if still having symptoms in 72 hours, # 2 tablet, 0 Refills, Soft Stop, 09/18/25 2:56:00 PM EST, Tablet, [facility] # [facility], Partial fill upon patient request if the prescription is for a schedule II opioid drug., 157, cm, 09/18/25 14:12:00 EST, Height, 70.2, kg, 07/22/25 13:04:00 EDT, Dry Weight Start Date: 09/18/25 Status: Ordered Medication Dispense Status: Completed Quantity: 2.0 Unit: tablet Total Allowed Fills: 1 Fills Dispensed: 0 Indications: Candidiasis of skin and nail; ibuprofen 600 mg oral tablet 600 mg, 1, tablet, By Mouth, Every 6 hours, PRN, # 60 tablet, Refills 0, Tot. Refills 0, Maintenance, Pain , Mild for pain, 07/01/25 2:04:00 PM EDT, Route to Pharmacy Electronically, [facility]/pharmacy #[id number], Partial fill upon patient request if the prescription is for a schedule II opioid drug., 157, cm, 06/18/25 11:23:00 EDT, Height, 68.9, kg, 06/30/25 13:00:00 EDT, Dry Weight Start Date: 07/01/25 Status: Ordered Medication Dispense Status: Completed Quantity: 60.0 Unit: tablet Total Allowed Fills: 1 Fills Dispensed: 0 L8000 Post-Surgical Pocketed Bras L8000 Post-Surgical Pocketed Bras, See Instructions, # 3 each, Refills 0, Tot. Refills 0, Maintenance, Y2308-0 Post-Surgical Pocketed Bras every 3 months. DX: Bilateral Malignant Neoplasm of the Breasts. ICD-10: C50.911, C50.912 Length of Need: Current to [facility], 01/23/25 4:40:00 PM EDT, Supply Start Date: 01/23/25 Status: Ordered Medication Dispense Status: Completed Quantity: 3.0 Unit: each Total Allowed Fills: 1 Fills Dispensed: 0 Indications: Malignant neoplasm of unspecified site of left female breast; Malignant neoplasm of unspecified site of right female breast; Malignant neoplasm of unspecified site of right female breast; L8020 LT/RT Breast Leisure Prostheses L8020 LT/RT Breast Leisure Prostheses, See Instructions, # 2 each, Refills 0, Tot. Refills 0, Maintenance, A8036-7 LT/RT Breast Leisure Prostheses per 6 months. DX: Bilateral Malignant Neoplasm of the Breasts. ICD-10: C50.911, C50.912 Length of Need: Current to [facility], 01/23/25 4:37:00 PM EDT, Supply Start Date: 01/23/25 Status: Ordered Medication Dispense Status: Completed Quantity: 2.0 Unit: each Total Allowed Fills: 1 Fills Dispensed: 0 Indications: Malignant neoplasm of unspecified site of left female breast; Malignant neoplasm of unspecified site of right female breast; Malignant neoplasm of unspecified site of right female breast; Y1013-ZJ/RT Silicone Breast Prostheses S6237-KB/RT Silicone Breast Prostheses, See Instructions, # 2 each, Refills 0, Tot. Refills 0, Maintenance, 2 LT/RT Silicone breast prosthesis, L8030, per 24 month period. DX: Bilateral Malignant Neoplasm of the Breasts. ICD-10: C50.911, C50.912 Length of Need: Current to [facility], 01/23/25 4:32:00 PM EDT, Supply Start Date: 01/23/25 Status: Ordered Medication Dispense Status: Completed Quantity: 2.0 Unit: each Total Allowed Fills: 1 Fills Dispensed: 0 Indications: Malignant neoplasm of unspecified site of left female breast; Malignant neoplasm of unspecified site of right female breast; Malignant neoplasm of unspecified site of right female breast; Methemamine Methemamine, 1 Gm, Refills 0, Maintenance, 07/22/25 1:12:00 PM EDT, Supply Start Date: 07/22/25 Status: Ordered Medication Dispense Status: Completed Total Allowed Fills: 1 Fills Dispensed: 0 methenamine hippurate 1 gm oral tablet TAKE 1 TABLET BY MOUTH 2 TIMES A DAY WITH MEALS. Start Date: 08/14/25 Status: Ordered Medication Dispense Status: Completed Total Allowed Fills: 1 Fills Dispensed: 0 Misc Rx THERALOGIX THERACRAN MAX, By Mouth, 2 times a day, Refills 0, Maintenance, Mannrose D, 03/17/24 3:22:00 PM EDT, Supply Start Date: 03/17/24 Status: Ordered Medication Dispense Status: Completed Total Allowed Fills: 1 Fills Dispensed: 0 Probiotic Formula By Mouth, Daily, 0 Refills, Maintenance, 09/24/24 3:01:00 PM EST, Partial fill upon patient requestif the prescription is for a schedule II opioid drug. Start Date: 09/24/24 Status: Ordered Medication Dispense Status: Completed Total Allowed Fills: 1 Fills Dispensed: 0 Synthroid 0.125 mg oral tablet 1 tablet, By Mouth, Daily, # 90 tablet, 3 Refills, Maintenance, 06/17/25 4:51:00 AM EDT, [id number], 157, cm, 06/16/25 16:42:00 EDT, Height, 68.2, kg, 04/15/25 11:51:00 EDT, Dry Weight Start Date: 06/17/25 Status: Ordered Medication Dispense Status: Completed Quantity: 90.0 Unit: tablet Total Allowed Fills: 1 Fills Dispensed: 0 Systane Balance ophthalmic solution 1 drops, Eyes, Both, 2 times a day, PRN for dry eyes, # 10 mL, 0 Refills, Maintenance, 11/13/24 10:59:00 AM EST, [facility], Partial fill upon patient request if the prescription is for a schedule II opioid drug. Start Date: 11/13/24 Status: Ordered Medication Dispense Status: Completed Quantity: 10.0 Unit: mL Total Allowed Fills: 1 Fills Dispensed: 0 TheraCran 0 Refills, Maintenance, 06/18/25 11:22:00 AM EDT, Partial fill upon patient request if the prescription is for a schedule II opioid drug. Start Date: 06/18/25 Status: Ordered Medication Dispense Status: Completed Total Allowed Fills: 1 Fills Dispensed: 0 Tylenol 325 mg oral capsule 1 capsule = 325 mg, By Mouth, Every 4 hours, PRN as needed for fever, prn, # 20 capsule, 0 Refills,Maintenance, 08/23/17 1:12:01 PM EDT, Capsule Start Date: 08/23/17 Status: Ordered Medication Dispense Status: Completed Quantity: 20.0 Unit: capsule Total Allowed Fills: 1 Fills Dispensed: 0 Problem List Condition Confirmation Course Effective Dates Status H ealth Status Informant BRCA2 positive Confirmed Active Grief reaction Confirmed Active Hip injury Confirmed Active History of breast cancer Confirmed Active Hyperglycemia Confirmed Active Hyperlipidemia Confirmed Active Hypothyroid Confirmed Active Osteopenia Confirmed Active Paraplegia Confirmed Active Prediabetes Confirmed Active 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 Seborrheic keratoses Confirmed Active Follow-up examination after gynecological surgery Confirmed Active Tubular adenoma of colon Confirmed Active Patient Care team information Care Team Personnel Name: Emilia Santo Position: [facility] RN Member Role: Primary Care Nurse Name: Lata Chowdhury RN Position: [facility] RN Member Role: Primary Care Nurse Name: Yolanda Islas RN Position: [facility] Onco RN Member Role: Primary Care Nurse Name: Kindra Alvares RN Position: [facility] RN Member Role: Primary Care Nurse Name: Mague Dee RN Position: [facility] ED RN W/OE and Tasks Member Role: Primary Care Nurse Name: Jaymie Delaney RN Position: [facility] RN Member Role: Primary Care Nurse Name: Rao Rizzo MD Position: [facility] Physician - Primary Care Member Role: PCP Address: [address] [place] [address]- Telecom: Name: Mague Morley RN Position: S Onco RN Member Role: Primary Care Nurse Name: Leanne Monson RN Position: [facility] Onco RN Member Role: Primary Care Nurse Name: Maria Elena Lozano Position: S RN Member Role: Primary Care Nurse Care Team Related Persons Name: DAGO CAUSEY Name: ADRIANA DELCID Insurance Providers Guarantor name: CARROL DELCID [place] Plan Information #: 1 Payer: MEDICARE B Payer Identifier: NA Member Number: [id number] Group Number: NA Subscriber Identifier: NA Relationship to Subscriber: self Coverage Type: NA Coverage Verification Date: NA Telecom: Address: [facility] Information #: 2 Payer: MEDEX SECONDARY ONLY Payer Identifier: CALLUM Member Number: [id number] Group Number: NA Subscriber Identifier: NA Relationship to Subscriber: self Coverage Type: Medicare Other Coverage Verification Date: NA Telecom: Address:
--- OUTSIDE RECORDS SUMMARY | 2025-10-01 23:59 | XMS_ITS | Continuity of Care Document ---
Author Organization [facility] Jose Angel lt Address [address] [place] [address]- Care Team Providers Care Manager Sound Name Role Phone Matthias CONTRERAS, Rao Peters Primary Care Physician [phone] [id number] - 10[facility]01[facility] [address] [place] [address]- Encounter Type: Triage Allergies, Adverse Reactions, Alerts [...] influenza virus vaccine, inactivated 08/09/16 Baldomero rded [id number] 12y+ bivalent booster vax 04/05/23 Recorded [id number] 12y+ bivalent booster vax 07/22/22 Recorded SARS-CoV-2 [...] HD 3Result Comment: [place] 4Result Comment: [03/12/2018] [facility] [id number] 5Result Comment: [03/06/2017] Dr Maldonado 6Location History: [facility] 7Result Comment: [03/06/2017] Dr Maldonado 8Result [...] 5 Refills, SoftStop, 03/14/25 3:41:00 PM EDT, [facility]/pharmacy #[id number], Partial fill upon patient request if [...] 2:04:00 PM EDT, Route to Pharmacy Electronically, [facility]/pharmacy #[id number], Partial fill upon patient request if the [...] each, Refills 0, Tot. Refills 0, Maintenance, Z7129-1 Post-Surgical Pocketed Bras every 3 months. DX: [...] each, Refills 0, Tot. Refills 0, Maintenance, E5656-3 LT/RT Breast Leisure Prostheses per 6 months. [...] of unspecified site of right female breast; B0038-UJ/RT Silicone Breast Prostheses Q3171-NN/RT Silicone Breast Prostheses, See Instructions, # 2 [...] 3 Refills, Maintenance, 06/17/25 4:51:00 AM EDT, [facility], 157, cm, 06/16/25 16:42:00 EDT, Height, 68.2, [...] Care Team Personnel Name: Emilia Santo Position: [facility] RN Member Role: Primary Care Nurse Name: Lata Chowdhury RN Position: [facility] RN Member Role: Primary Care Nurse Name: Yolanda Islas RN Position: [facility] Onco RN Member Role: Primary Care Nurse Name: Kindra Alvares RN Position: [facility] RN Member Role: Primary Care Nurse Name: Mageu Dee RN Position: [facility] ED RN W/OE and Tasks Member Role: Primary Care Nurse Name: Jaymie Delaney RN Position: [facility] RN Member Role: Primary Care Nurse Name: Rao Rizzo MD Position: [facility] Physician - Primary Care Member Role: PCP Address: [address] [place] [address]- Telecom: Name: Mague Morley RN Position: [facility] Onco RN Member Role: Primary Care Nurse Name: Leanne Monson RN Position: [facility] Onco RN Member Role: Primary Care Nurse Name: Maria Elena Lozano Position: [facility] RN Member Role: Primary Care Nurse Care Team Related Persons Name: DAGO CAUSEY Name: ADRIANA DELCID Insurance Providers Guarantor name: CARROL DELCID Health Plan Information #: 1 Payer: MEDICARE B Payer Identifier: CALLUM Member Number: [id number] Group Number: NA Subscriber Identifier: NA Relationship to Subscriber: self Coverage Type: NA Coverage Verification Date: NA Telecom: NA Address: [facility] Information #: 2 Payer: MEDEX SECONDARY ONLY Payer Identifier: CALLUM Member Number: [id number] Group Number: NA Subscriber Identifier: NA Relationship to Subscriber: self Coverage Type: Medicare Other Coverage Verification Date: NA Telecom: Address:
--- OUTSIDE RECORDS SUMMARY | 2025-10-03 23:59 | XMS_ITS | Continuity of Care Document ---
Author Organization [facility] Angel lt Address [address] [place] [address]- Care Team Providers Care Universal Grinder Set Up Operator Name Role Phone Matthias CONTRERAS, Rao Peters Primary Care Physician [phone] [id number] - 10/03/[facility] [address] [place] [address]- Encounter Type: Triage Allergies, Adverse Reactions, Alerts Substance Criticality Severity Reaction Reaction Severity Status codeine Hives Active LMX 4 with Tegaderm Hives Blistering Active cefuroxime Diarrhea Active Other Environmental Allergy Paralysis of lower limb Ether anesthesia vaporizer Active amoxicillin Itching Active Naprosyn D - Diarrhea Active Bactrim Feels everythin g is spinning round Active Septocaine PROLONGED NUMBI NG never wears off Active hydromorphone-ropivaca ine Hypotensive episode Active Immunizations [...] influenza virus vaccine, inactivated 08/09/16 Baldomero rded [id number] 12y+ bivalent booster vax 6/1/23 Recorded [id number] 12y+ bivalent booster vax 07/22/22 Recorded SARS-CoV-2 [...] HD 3Result Comment: [place] 4Result Comment: [03/12/2018] [facility] [id number] 5Result Comment: [03/06/2017] Dr Maldonado 6Location History: [facility] 7Result Comment: [03/06/2017] Dr Maldonado 8Result Comment: [...] 5 Refills, SoftStop, 03/14/25 3:41:00 PM EDT, [facility]/pharmacy #[id number], Partial fill upon patient request if [...] 2:04:00 PM EDT, Route to Pharmacy Electronically, [facility]/pharmacy #[id number], Partial fill upon patient request if the [...] each, Refills 0, Tot. Refills 0, Maintenance, Z1171-8 Post-Surgical Pocketed Bras every 3 months. DX: [...] each, Refills 0, Tot. Refills 0, Maintenance, V4150-0 LT/RT Breast Leisure Prostheses per 6 months. [...] of unspecified site of right female breast; Q4267-TI/RT Silicone Breast Prostheses U8894-IQ/RT Silicone Breast Prostheses, See Instructions, # 2 [...] 3 Refills, Maintenance, 06/17/25 4:51:00 AM EDT, [id number], 157, cm, 06/16/25 16:42:00 EDT, Height, 68.2, [...] Care Team Personnel Name: Emilia Santo Position: [facility] RN Member Role: Primary Care Nurse Name: Lata Chowdhury RN Position: [facility] RN Member Role: Primary Care Nurse Name: Yolanda Islas RN Position: [facility] Onco RN Member Role: Primary Care Nurse Name: Kindra Alvares RN Position: [facility] RN Member Role: Primary Care Nurse Name: Mague Dee RN Position: [facility] ED RN W/OE and Tasks Member Role: Primary Care Nurse Name: Jaymie Delaney RN Position: [facility] RN Member Role: Primary Care Nurse Name: Rao Rizzo MD Position: [facility] Physician - Primary Care Member Role: PCP Address: [address] [place] [address]- Telecom: Name: Mague Morley RN Position: [facility] Onco RN Member Role: Primary Care Nurse Name: Leanne Monson RN Position: [facility] Onco RN Member Role: Primary Care Nurse Name: Maria Elena Lozano Position: S RN Member Role: Primary Care Nurse Care Team Related Persons Name: DAGO CAUSEY Name: ADRIANA DELCID Insurance Providers Guarantor name: CARROL DELCID [employer] Plan Information #: 1 Payer: MEDICARE B Payer Identifier: CALLUM Member Number: [id number] Group Number: NA Subscriber Identifier: NA Relationship to Subscriber: self Coverage Type: NA Coverage Verification Date: NA Telecom: NA Address: [facility] Information #: 2 Payer: MEDEX SECONDARY ONLY Payer Identifier: CALLUM Member Number: [id number] Group Number: NA Subscriber Identifier: NA Relationship to Subscriber: self Coverage Type: Medicare Other Coverage Verification Date: NA Telecom: Address:
--- OUTSIDE RECORDS SUMMARY | 2025-10-07 18:29 | XMS_ITS | Data Portability ---
Author Organization [facility] Address [address] [place] [address] Care Team Providers Care Audit Reviewer Name Role Phone KEYANNA GEE Primary Care Provider JEREMY VILLALOBOS Primary Care Provider Assessment No assessment recorded. Plan of Treatment [...] 08:57:03 CT, coronary calcium score 2020 021 [facility], [address] [place], [address], 2 15:14:08 Medication Orders None recorded . Patient TargetsNo targets recorded. Patient Instructions Encounter Date Encounter Id Patient Instructions Last Modified By Organization Details Last Modified Time 11/03/2021 [id number] The patient has been experiencing shortness of [...] inhibitor dorita Not available 11/03/2021 09:20:48 12/15/2022 [id number] medical record request* - Please send most [...] pickles. [email or web address] Not available 12/15/2022 10:01:11 11/27/2023 [id number] cv status is stable. need to review lipid panel which she will take in january. [email or web address] Not available 11/27/2023 10:18:02 Reason for Referral None Reported. Results Created Date Observation Date Name Description Value Unit Range Abnormal Flag Note LastModifiedBy Organization Detail LastModifiedTime 11/03/20 [facility] rocar diogr am No observ ation record ed. [email or web address] [facility] [address] [place], [address], 11/03/2021 08:55:44 11/03/20 [facility] rocar diogr am No observ ation record ed. Not Available 2020 08:34:31 11/07/19 22 11/07/2021 CT, coron gennaro calci um score No observ ation record ed. [email or web address] [facility] [address], [place], [address], 11/08/2021 16:35:09 12/15/19 23 [facility] rocar diogr am No observ ation record ed. [email or web address] [facility] [address] [place], [address], 12/15/2022 09:47:51 02/10/20 23 elect rocar diogr am No observ ation record ed. Not Available 2022 09:32:11 11/27/19 24 elect rocar diogr am No observ ation record ed. [email or web address] [facility] [address] [place], [address], 11/27/2023 10:08:17 11/27/19 24 elect rocar diogr am No observ ation record ed. Not Available 2023 09:50:59 Result Notes None recorded. Problems Name Problem SNOMED Code Status Onset Date Resolution Date Notes Provider Name and Address Organization Details Recorded Time Hypothyroi dism 86569121 Active 2020 Hermilo Griffith MD [address] [facility] [place] ,[facility], [place], [address], [facility] 1 08:44:38 Dyslipidem ia 101462665 Active 2020 Hermilo Griffith MD [address] [place] [address] ,[address], [address] [place] [address], [facility] 1 08:44:48 Osteoarthr itis 511677528 Active 2020 Hermilo Griffith MD [address] [place] [address] ,[facility], [place], [place], [address] [place] [address], [facility] 1 08:45:36 History of malignant neoplasm of breast 534766858 Active 2020 left masectomy took tamoxifen no chemo or RT Hermilo Griffith MD [address] [facility] [place] ,[facility], [place], [address] [place] [address], [facility] 1 08:46:59 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 Procedures Surgical History Date Name Laterality Status Provider Name and Address Organization Details Recorded Time Mastectomy completed Val Marychuy [facility] 11/03/2021 08:27:05 Orthopedic Surgery completed Val Perrin [facility] 11/03/2021 08:27:05 Cataract Surgery completed Valsarath [facility] 11/03/2021 08:27:05 Other Surgeries completed Valsarath Perrin [facility] 11/03/2021 08:27:05 Joint Replacement completed Val Perrin [facility] 11/03/2021 08:27:05 Breast Surgery (Lumpectomy, Biopsy, Implants) completed Valsarath Perrin [facility] 11/03/2021 08:27:05 Cancer Surgery completed Val Marychuy [facility] 11/03/2021 08:27:05 Imaging Results None recorded. Procedure Notes None recorded. Medical Equipment None Reported. Allergies Allergen ID Allergen Name Allergen Category Reaction Reaction Severity Criticality Documentation Date Start Date Code Code System Note Provider Name and Address Organization Details Recorded Time 382719 codeine medicatio n rash Not available Not available 11/03/2021 2670 [facility] 1 08:27:04 743905 hydrocodo ne Not available other Not available Not available 11/03/2021 5489 [facility] 08:27:04 881606 lactose food,medi cation Not available Not available Not available 11/27/2023 6211 RxNorm [facility] 4 09:52:34 Medications Name Sig Start Date [...] Date Recorded Body height Heart rate Systolic And Diastolic Provider Name and Address Organization Details Last Updated DateTime 11/27/2023 160.02 cm 72 /min 160/82 mm[Hg] Val Perrin [facility] 11/27/2023 09:47:59 Date Recorded Body weight Body mass index (BMI) Body height Heart rate Systolic And Diastolic Systolic And Diastolic Provider Name and Address Organization Details Last Updated DateTime 3 49805.7 4 g 29.2 kg/m2 160.02 cm 80 /min 168/80 mm[Hg] 144/78 mm[Hg] Val Perrin [facility] 3 09:39:54 Date Recorded Body height Body mass index (BMI) Body weight Heart rate Systolic And Diastolic Provider Name and Address Organization Details Last Updated DateTime 11/03/2021 160.02 cm 29.4 kg/m2 62146.33 g 80 /min 170/86 mm[Hg] Val Perrin [facility] 11/03/2021 08:32:05 Social History Question Answer Notes LastModified by Organizat ion Details LastModified Time Tobacco Smoking Status Never Smoker Val Perrin [facility] 11/03/2021 08:27:05 Do You Have An [...] 11/03/2021 Are you able to care for yourself independently? Yes Information not available 11/03/2021 What is your exercise level? Occasional Information not available 11/03/2021 Mental Status Question Answer Note LastModified by Organization D etails LastModified Time Do you feel stressed (tense, restless, nervous, or anxious, or unable to sleep at night)? [id number] Information not available 11/03/2021 Family History Relationship Description Onset Age of this Age Resolved Age Notes LastModified by Organization Details LastModified Time Mother Family history of stroke Not available 2020 08:27:04 Mother Heart disease 95 takosu roxi stress cardio myopat hy Not available 11/03/2021 08:49:31 Mother Malignant neoplasm of colon Not available 2020 08:27:04 Mother Hypertensive disorder Not available 2020 08:27:04 Medical History Condition Response Eye Problems (Glaucoma, Retinopathy, Mac ular Degeneration) Y Hearing Loss Y Cancer Y High Cholesterol (Hyperlipidemia) Y Thyroid Disease/Disorder Y Gynecological HistoryNo gynecological history recorded. Obstetrics History GPAL:G 0 P 0 0 0 0 Immunizations Vaccine Type Date Status Note Provider Nam e and Address Organization Details Recorded Time COVID-19, mRNA, LNP-S, PF, 30 mcg/0.3 mL dose, roxane-sucrose 02/16/2022 completed Val Perrin [facility] 12/15/2022 09:33:40 Past Encounters Encounter ID Performer Location Encounter Start Date Encounter Closed Date Diagnosis/Indication Diagnosis SNOMED-CT Code Diagnosis ICD10 Code Diagnosis IMO Codes Diagnosis Note [id number] Hermilo Griffith MD [facility] [address] [place] [address] 11/03/2021 08:16:39 11/03/2021 12:40:01 Atypical angina 093366372 I20.8 having sob as per hpi. Dyslipidemia 034942262 E 78.5 on atorvastat in [id number] Hermilo Griffith MD [facility] [place] [address] [place] [address] 12/15/2022 09:22:50 12/15/2022 10:08:58 Body mass index 25-29 - overweight 993870913 Z68.25 Dyslipidemia 507071621 E 78.5 on atorvastat in Atypical angina 10820320 2 I20.8 having sob as per hpi. Hypothyroidism 25997640 E03.9 Calcificat ion of coronary artery 703962793 I25.84 LAD 55 RCA 47 [id number] Hermilo Griffith MD [facility] [place] [address] [place] [address] 11/27/2023 09:43:47 11/27/2023 10:23:47 Calcification of coronary artery 491770583 I25.84 LAD 55 RCA 47 Dyslipidemia 327553460 E 78.5 on atorvastat in 10 mg a day Health Concerns Section Related Observation LastModified by Organization Detai ls LastModified Time None Recorded Concern Status LastModified by Organization Details LastModified Time None Recorded Advance Directives Directive Y: Payers Insurance Date Sequence Insurance Name Policy Number Policy Hilliard Covered Member ID Hilliard Member ID Guarantor Name 12/20/2024 1 [place] Desiree March [id number] 3 Desiree 12/20/2024 2 [place] [id number] Desiree March [id number] e March Notes Date Note Type Note Provider Name and Address Organization Details Recorded Time 11/03/2021 text/html Here for elevated crp. no cardiac hx. No hx cad. she is sedentary. denies cp or sob. sob if she walks too fast . uses walker.she denies HTN,CVA, Hermilo Griffith MD [address], [place], [address], [facility] 11/03/2021 09:21:00 12/15/2022 text/html ambulating with walker. she denies cp or sob. no falling. initial evaluation-Here for elevated crp. no cardiac hx. No hx cad. she is sedentary. denies cp or sob. sob if she walks too fast . uses walker.she denies HTN,CVA, Hermilo Griffith MD [address], [place], [address], [facility] 12/15/2022 10:01:40 11/27/2023 text/html ambulating with walker. [...] walker.she denies HTN,CVA, Hermilo Griffith MD [address], [place], [address], [facility] 11/27/2023 10:19:07 OBGyn Episode No OBEpisode recorded.
--- OUTSIDE RECORDS SUMMARY | 2025-10-07 18:29 | XMS_ITS | Patient Health Record ---
Author Organization [facility] Address [address] [place] [address] Care Team Providers Care Tele Tech Name Role Phone Rao Rizzo Primary Care Provider Paolo Granados Unavailable [phone] Allergies Allergen (clinical drug ingredient) Drug/Non Drug Allergy documented on EMR Reaction Allergy Type Onset Date Status Ether Ether (uncoded) Unknown Allergy Acti ve amoxicillin Amoxicillin she reports that she had pruritus once after taking amoxicillin, but she did receive IV ampicillin and p.o. amoxicillin in 2009 with her last colonoscopy, and did not have any adverse reactions Drug Allergy Active clindamycin Clindamycin HCl Unknown Drug Allergy Active codeine Codeine Sulfate Unknown Drug Allergy A ctive hydromorphone Hydromorphone HCl Unknown Drug Allergy Active naproxen Naprosyn Unknown Drug Allergy Active Tegaderm Unknown Drug Allergy Active Results Component Value Reference Range Flag Notes Complete Blood Count Auto Di ff Reviewed date:05/04/2025 10:43:39 PM Interpretation: Performing Lab:[facility], [address] [place] [address] Notes/Report: White Blood Count 7.9 4.8-10.8 X10*3/uL N Red Blood Count 4.17 4.20-5.50 X10*6/uL L Hemoglobin 11.7 12.0-16.0 g/dl L Hematocrit 37.1 37.0-47.0 % N Mean Corpuscular Volume 89.0 80.0-98.0 fL N Mean Corpuscular Hemoglobin 28.1 27.0-33.0 pg N Mean Corpuscular HGB Conc 31.5 31.0-35.0 g/dl N Red Cell Distribution Width 15.9 11.0-16.0 % N Platelet Count 266 160-400 X10*3/uL N Mean Platelet Volume 9.1 9.4-12.3 fL L Neutrophils Percent Auto 71.8 45-73 % N Imm Gran Pct Auto 0.6 0.0-0.4 % H Lymphocytes Percent Auto 17.6 20-40 % L Monocytes Percent Auto 7.9 2-11 % N Eosinophils Percent Auto 1.5 0-4 % N Basophils Percent Auto 0.6 0-2 % N NRBC Pct Auto 0.0 0.0-0.2 /100WBC N Neutrophils Absolute Auto 5.7 2.0-8.3 x10*3/uL N Imm Gran Abs Auto 0.05 0.00-0.03 X10*3/uL H Lymphocytes Absolute Auto 1.4 1.2-4.9 X10*3/uL N Monocytes Absolute Auto 0.6 0.1-1.2 X10*3/uL N Eosinophils Absolute Auto 0.1 0.0-0.4 X10*3/uL N Basophils Absolute Auto 0.1 0.0-0.2 X10*3/uL N NRBC Abs Auto 0.000 0.0-0.012 X10*3/uL N Prothrombin Time INR Reviewed date:05/04/2025 10:41:55 PM Interpretation: Performing Lab:[address] [address] Notes/Report: Prothrombin Time 14.5 10.9-12.4 SEC H INTERNATIONAL NORM RATIO 1.3 0.9-1.1 H INTERNATIONAL NORMALIZED RATIO (INR) REFERENCE RANGES Reference Range For patients not on anticoagulant therapy: 0.9 - 1.1 INR ranges for oral anticoagulant therapy: For prevention and treatment of venous thrombosis and pulmonary embolism: 2.0 - 3.0 For acute myocardial infarction with aspirin therapy: 2.0 - 3.0 For acute myocardial infarction without aspirin therapy: 3.0 - 4.0 For patients with mechanical prosthetic heart valves: 2.5 - 3.5 Liver Panel Reviewed date:05/04/2025 10:43:24 PM Interpretation: Performing Lab:[address] [address] Notes/Report: Bilirubin Total 0.4 0.0-1.0 mg/dL N Bilirubin Direct 0.1 0.0-0.5 mg/dL N Aspartate Amino Transferase 17 5-31 U/L N Alanine Aminotransferase 20 0-31 U/L N Total Protein 6.7 6.5-8.0 g/dL N Albumin Level 4.0 3.5-5.0 g/dL N Alkaline Phosphatase 69 39-117 U/L N Basic Metabolic Panel Reviewed date:05/04/2025 10:43:12 PM Interpretation: Performing Lab:[facility], [address] [place] [address] Notes/Report: Sodium 141 135-145 mmol/L N Potassium 3.9 3.3-5.1 mmol/L N Chloride 108 96-108 mmol/L N Carbon Dioxide 22 22-29 mmol/L N Anion Gap 15 12-20 N Blood Urea Nitrogen 21 9-16 mg/dL H Creatinine 0.77 0.5-1.4 mg/dL N Estimated Glomerular Filt Rate > 60 Chronic Kidney Disease: Estimated GFR < 60 mL/min/1.73m2 Severe Kidney Disease: Estimated GFR < 15 mL/min/1.73m2 Glucose Random 118 60-115 mg/dL H Calcium 9.7 8.4-10.2 mg/dL N Reason For Referral No Information Medications Medication SIG (Take, Route, Frequency, Duration) Notes Start Date End Date Status Centrum Silver 50+Women Active Cran-Max Active Tylenol 600 mg Tablet 1 tablet as needed Orally prn Not-Taking/P RN Synthroid 125 MCG Tablet 1 tablet Orally 6 x a week Active Probiotic Active Eliquis 5 MG Tablet Oral; Duration: 30 Days Active Azithromycin before dental procedures Not-Taking/P RN Cefpodoxime Proxetil 200 MG Tablet TAKE 1 TABLET BY MOUTH TWICE A DAY Oral; Duration: 10 Days Active Centrum Silver Ultra Womens Tablet Orally qd Active Atorvastatin Calcium 10 MG Tablet 1 tablet Orally Once a day Active CoQ10 200 MG Capsule 1 capsule with a meal Orally Once a day Active Caltrate 600+D 600-400 MG-UNIT Tablet 1 tablet Orally Twice a day Active Immunizations Vaccine Route Administration Date Status Comme nts Flu vaccine no Preserv 3 and > Unknown 08/19/2014 Admin istered Influenza Unknown 04/08/2020 Administered Social History Social History Drugs/Alcohol: Social Info Question Answer Notes Alcohol Screen Did you have a drink containing alcohol in the past year? Yes How often did you have a drink containing alcohol in the past year? 2 to 3 times a week (3 points) How many drinks did you have on a typical day when you were drinking in the past year? 1 or 2 drinks (0 point) How often did you have 6 or more drinks on one occasion in the past year? Never (0 point) Points 3 Interpretation Positive Additional Details Category Social Info Options Details Miscellaneous: Marital status: Occupation: retired Section Notes: Nonsmoker; no sig alcohol Nonsmoker; no sig alcohol Problems Problem Type SNOMED Code ICD Code Onset Dates Problem Status W/U Status Risk Notes Problem Screening for malignant neoplasm of colon (807902478) Encounter for screening for malignant neoplasm of colon (Z12.11) Active confirmed Problem History of adenomatous polyp of colon (188883113) History of adenomatous polyp of colon (Z86.010) Active confirmed Problem Family History of Cancer of Colon (Situation) (822872327) Family history of colon cancer (Z80.0) Active confirmed Problem Common bile duct calculus (322811605) Choledocholithiasis (K80.50) Active confirmed Problem Gallstones (102375257) Gallstones (K80.20) Active confirmed Problem Long-term current use of antiplatelet drug (53091807843776 1) Long-term use of aspirin therapy (Z79.82) Active confirmed Vital Signs Blood pressure diastolic 77 mm Hg 05/07/2025 Height 62.5 in 05/07/2025 Blood pressure systolic 111 mm Hg 05/07/2025 Weight 150 lbs 05/07/2025 BMI 27 kg/m2 05/07/2025 Encounters Encounter Location Date Provider Diagnosis [facility] [address] [place] [address] 05/07/2025 Paolo Samano Choledocholithiasis K80.50 [facility] [address] [place] [address] 04/26/2025 Paolo Samano Choledocholithiasis K80.50 and Gallstones K80.20 [facility] [address] [place] [address] 05/07/2025 Paolo Samano [facility] [address] [place] [address] 05/31/2025 Paolo Samano Assessments Encounter Date Diagnosis (ICD Code) Assessment Notes Treatment Notes Treatment Clinical Notes Section Notes 05/07/2025 Choledocholithiasis (ICD-10 - K80.50) Call or go to ER if you develop right upper abdominal pain, jaundice, fever, etc. I will call [facility] to line up an OV with Dr. Macdonald or one of his associates to set up the ERCP to remove the bile duct stones Overall, Desiree appears quite well considering her recent problems over the past 6 months or so. We did review her gallstones and choledocholithiasis in detail. They have clearly been asymptomatic and have most likely been present for years. However, I did explain to her and her in detail the potential for choledocholithiasis to precipitate cholangitis if indeed biliary obstruction was to occur. I did review the seriousness of cholangitis with potential sepsis, particularly in light of the fact that she just recently finished treatments for the bladder cancer and is in a relatively immunocompromised condition. Although she is feeling well at this point both in general, and more specifically from a GI standpoint and is without any biliary symptoms, I advised her that it would be prudent to remove the common bile duct stones and then consider eventual cholecystectomy as it is impossible to predict if and when those stones may cause problems with potential sepsis and its associated increased morbidity and mortality. As such, I did recommend she undergo an ERCP. We did review that procedure in detail with its potential for complications including bleeding, perforation, cholangitis and pancreatitis. We did review the potential for a failed procedure in regard to being unable to cannulate the bile duct. When I mentioned the potential for failure of the procedure she did ask me what the next step would be if that was to occur. I advised her that I would then most likely refer her to a tertiary center such as [facility] to have one of their therapeutic endoscopists attempt the procedure. Upon hearing that she advised me that she would like to go to [facility] initially rather than first have the procedure here with me. 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 She would also like to do it at [facility] since that is where her oncologist and urologist are based out of. I advised her that I think that is very reasonable and told her that I would make plans for a referral to one of the therapeutic endoscopists in their GI department. She would like to first meet the doctor for an office visit before scheduling the ERCP. I advised her that I would arrange that for her and advised her that at this point there is no johnson to get this done as she has been completely asymptomatic. Hopefully she will be able to stop her Eliquis after the upcoming ultrasound, but if not then discussions can be had with her oncologist as to possibly stopping the Eliquis for a couple of days before the ERCP and potentially bridging her with Lovenox during that time if need be. In the meantime, I did review with her in detail that if she develops any significant right upper quadrant pain, jaundice, fevers, etc. then that would be indications of biliary obstruction and/or cholangitis. I advised her that if that occurs she should go to the ER and at this point would recommend [facility] since that is where she wants to have the ERCP done. Desiree and her understood all of this and were very comfortable with this plan. I have advised them to call me at any point if she is having any problems or questions I can be of assistance with. Thank you again for allowing me to have participated in Desiree's care. I shall continue to keep you advised of her progress as needed. Please do not hesitate to contact me if I can be of any further assistance in the future. 04/26/2025 Choledocholithiasis (ICD-10 - K80.50) 04/26/2025 Gallstones (ICD-10 - K80.20) Plan Of Treatment Pending Test Test Name Order Date CHEM 7 PROFILE 04/26/2025 LIVER PROFILE 04/26/2025 CBC w DIFF 04/26/2025 Prothrombin Time INR 04/26/2025 Future Test Test Name Order Date COLONOSCOPY 02/11/2015 COLONOSCOPY 04/08/2020 Insurance Providers Payer Name Payer Address Payer Phone Subscriber Number Group Number Insured Name Patient Relationship to Insured Coverage Start Date Coverage End Date MEDICARE OF [place] [address] [place] [address] [id number] MARCH, DESIREE Self - patient is the insured 7 MEDEX ATTN CLAIMS [address] [place] [address] [id number] MARCH, DESIREE Self - patient is the insured Medical (General) History Medical History History ICD Code Colonoscopy, 03/2010- - Tubul ar adenoma and hyperplastic polyp; tubular adenomas removed in 1999 and 2003 as well Vertigo Denies NV,DM,CVA,Lung disease,renal dise ase Breast cancer as below 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 Tonsillectomy as above Bilateral cataracts Transurethral resection of bladder (TURB T) 12/20/2024
--- OUTSIDE RECORDS SUMMARY | 2025-10-07 18:30 | XMS_ITS | Clinical Summary ---
Author Organization [facility] Address [address] [address] Phone Care Team Providers Care Typesetters Printer Name Role Phone Rao Rizzo MD Primary Care Provider + Cody Morris MD Unavailable Kathy Parker MD Unavailable [phone] Luisito Yeung MD, MPH Unavailable Allergies Active Allergy Reactions Criticality Noted Date Comments Amoxicillin Itching Medium 04/16/2012 Cephalexin Monohydrate Rash 07/16/2011 Clindamycin Diarrhea Medium 04/16/2012 Codeine Unknown 03/10/2004 Ether Unknown 07/18/2011 Hydromorphone Hypotension Medium 04/16/2012 Naproxen Diarrhea High 04/16/2012 Procaine Hcl Unknown 07/18/2011 Medications acetaminophen (TYLENOL) 500 MG tablet Take 1,000 mg by mouth every 8 (eight) hours as needed for pain (specific location in comments). 5 Active levothyroxine (SYNTHROID) 125 MCG tablet Take 125 mcg by mouth every morning. PT SAYS TAKES 6 DAYS A WEEK 5 Active atorvastatin (LIPITOR) 10 MG tablet Take 10 mg by mouth daily. Active diazePAM (VALIUM) 5 MG tablet Take 0.5-1 tablets by mouth daily as needed for anxiety. Active PEG 400-propylene glycol, PF, (SYSTANE, PF,) 0.4-0.3 % Dpet Place 1 drop into each eye as needed. Active ibuprofen (ADVIL,MOTRIN) 600 MG tablet Take 600 mg by mouth as needed for pain (specific location in comments). ON HOLD WHILE ON ELIQUIS 5 Active tamsulosin (FLOMAX) 0.4 mg Cap Take 0.4 mg by mouth daily. Active oxyBUTYnin (DITROPAN) 5 MG tablet Take 5 mg by mouth 3 (three) times a day. NOT CURRENTLY TAKING 5 Active multivit-min/iro n/FA/vit K/lut (CENTRUM SILVER WOMEN ORAL) Take 1 tablet by mouth daily. Active coenzyme Q10 200 mg capsule Take 200 mg by mouth daily. ON HOLD WHILE ON CHEMO 5 Active calcium carbonate/vitami n D3 (CALTRATE 600 + D ORAL) Take 2 tablets by mouth daily. Active cranberry fruit extract (THERACRAN ORAL) Take 2 tablets by mouth daily. MAX Active Lactobacillus acidophilus (PROBIOTIC ORAL) Take 1 capsule by mouth daily. Active apixaban (ELIQUIS) 5 mg tablet Take 10 mg by mouth 2 (two) times a day. 5 Active apixaban (ELIQUIS) 5 mg tablet Take 5 mg by mouth 2 (two) times a day. 5 Active THIAMINE HCL ORAL Take 100 mg by mouth daily. NOT PICKED UP , PT DOES NOT WANT TO TAKE THIS 5 Active loperamide (IMODIUM A-D) 2 mg tablet Take 2 mg by mouth 2 (two) times a day as needed for diarrhea. 5 Active ondansetron (ZOFRAN) 4 MG tablet Take 4 mg by mouth every 8 (eight) hours as needed for nausea. 1-2 TABS 5 Active prochlorperazine (COMPAZINE) 5 MG tablet Take 5 mg by mouth every 6 (six) hours as needed for nausea. 5 Active simethicone 125 mg Cap Take 125 mg by mouth 4 (four) times a day as needed (GAS). 5 Active methenamine (HIPREX) 1 gram tablet Take 1 tablet (1 g total) by mouth 2 (two) times a day with meals. 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 Overview (12/26/2014): S/P Total hip replacement Uncoded H/O leg deformities 04/12/2006 Overview (12/26/2014): H/O leg deformities; Bilateral Hyperlipidemia 04/12/2006 Overview (12/26/2014): Hyperlipidemia Hypothyroidism 04/12/2006 Overview (12/26/2014): Hypothyroidism Adenoma of large intestine 04/12/2006 Overview (12/26/2014): Adenomatous polyp of colon Uncoded S/P Breast cancer 04/12/2006 Overview (12/26/2014): S/P Breast cancer; Left Uncoded bone spur on foot 04/12/2006 Overview (12/26/2014): bone spur on foot Encounters Date Type Department Care Team Description 07/21/2025 11:45 AM EDT Telemedicine [facility] Urology [address] [place] [address]; [address] [place] [address] Johnie Motley MD Malignant neoplasm of overlapping sites of bladder (Primary Dx); Calculus of kidney from Last 3 Months Immunizations Immunization Administration Dates Next Due [id number] FORMULATION 10/20/2009 Influenza, Unspecified Formulation 01/02(Deferred: Patient Decision - , Ordered By: [id number]),09/24/2008,08/22/2007 Pneumococcal polysaccharide PPSV23 04/16/2012, Pneumococcal, Unspecified Formulation (Deferred: Patient Decision - , Ordered By: [id number]) Tdap 08/22/2007 Zoster live 05/24/2010 Family History Medical History Relation Comments Breast cancer Maternal Aunt Ovarian cancer Maternal Aunt Breast cancer Maternal Cousin 1 Ovarian cancer Maternal Cousin 1 Breast cancer Maternal Cousin 2 Colon cancer Mother Prostate cancer Paternal Cousin 1 Prostate cancer Paternal Cousin 2 Colon cancer Paternal Cousin 3 Prostate cancer Paternal Cousin 4 Breast cancer Paternal Cousin 5 Prostate cancer Paternal Uncle Pancreatic cancer Son Relation Status Comments Maternal Aunt Alive Maternal Cousin 1 Alive Maternal Cousin 2 Alive Mother Paternal Cousin 1 Alive Paternal Cousin 2 Alive Paternal Cousin 3 Alive Paternal Cousin 4 Alive Paternal Cousin 5 Alive Paternal Uncle Alive Son Social History Tobacco Use Types Packs/Day Years Used Date Smoking Tobacco: Never Home Health Assessment: Transportation Answer Date Recorded Lack of Transportation (Medical) No 04/07/2025 Lack of Transportation (Non-Medical) No 04/07/2025 Patient Unable or Declines to Respond No 04/07/2025 Child or Family Care Answer Date Record ed Do you have problems with on e of the following making it difficult for you to work, study, or receive health care? No 11/30/2024 Education Answer Date Recorded Are you interested in more education? Not on imelda e 03/10/2023 Are you concerned about learning? Not on file 03/10/2023 No 03/10/2023 No 03/10/2023 Food Answer Date Recorded Within the past 6 months we worried whether our food would run out before we got money to buy more. Never True 11/30/2024 Within the past 6 months the food we bought just didn't last and we didn't have enough money to get more. Never True Residential Stability Answer Date Recor ded What is your housing situation today? I have victor hugo sing 11/30/2024 How many times have you move d in the past 12 months? Zero (I did not move) 11/30/2024 Paying for Meds Answer Date Recorded Do you have trouble paying for medicines? No 11/30/2024 Paying Utility Bills Answer Date Record ed Do you have trouble paying your heating or elect ricity bill? No 11/30/2024 Transportation Answer Date Recorded Has the lack of transportati on kept you from medical appointments or from getting medications? No 11/30/2024 Digital Access Answer Date Recorded No 04/01/2023 No 04/01/2023 Reliable internet access at home? Not on file 04/01/2023 Device with a working camera? Not on file Comments Unknown Sex and Gender Information Value Date Recorded Sex Assigned at Female 11/27/2024 2:50 PM EST Legal Sex Female 5:51 PM EST Gender Identity Female 11/27/2024 2:50 PM EST Sexual Orientation Straight 11/27/2024 2: 50 PM EST Last Filed Vital Signs Vital Sign Reading Time Taken Comments Blood Pressure 120/74 03/24/2025 3:50 PM EDT Pulse 85 03/24/2025 3:50 PM EDT Temperature 36.2 C (97.2 F) 03/24/2025 3:50 PM EDT Respiratory Rate 16 03/24/2025 3:50 PM EDT Oxygen Saturation 97% 03/24/2025 3:50 PM EDT Inhaled Oxygen Concentration - - Weight 78.6 kg (173 lb 4.5 oz) 02/07/2025 1:58 P M EDT Height 157.5 cm (5' 2 ) 02/07/2025 1:58 PM EDT Body Mass Index 31.69 02/07/2025 1:58 PM EDT Plan of Treatment Upcoming Encounters Date Type Department Care Team (Late st Contact Info) Description 10/20/2025 3:30 PM EST Telemedicine [facility] Urology [address] [place] [address] Medical Office Building; [address] [place] [address] Johnie Motley MD [address] [place] [id number] [email or web address] Health Maintenance Due Date Last Done Comments DEPRESSION SCREENING 1957 COLOGUARD 1990 COLONOSCOPY 1990 COLORECTAL CANCER SCREENING 1990 FIT TEST 1990 FOBT 1990 SIGMOIDOSCOPY 1990 VIRTUAL COLONOSCOPY 1990 PNEUMOCOCCAL VACCINES (50+ years) (3 of 3 - PCV) 04/16/2013 04/16/2012, 04/16/2012 CREATININE LEVEL 07/16/2015 07/16/2014, 01/2014, 12/31/2013, Additional history exists TSH LEVEL 07/16/2015 07/16/2014, 04/05, 02/07/2011 Adult Td,Tdap Booster 08/22/2017 08/22/2007 LIPID PANEL 07/16/2019 07/16/2014, 12/06, 10/04/2012, Additional history exists RSV VACCINE (1 - 1-dose 75+ series) 2020 INFLUENZA VACCINE (#1) 2025 , 08/20/2023, 08/08/2022, Additional history exists COVID-19 VACCINE (2024- season) 2025 04/05/2023, 07/22/2022, 02/16/2022, Additional history exists OSTEOPOROSIS SCREENING INITIAL (ONE-TIME) Completed 03/30/2011, 08/26/2007, 04/21/2005 SMOKING STATUS SCREENING (Once After 26 Yrs) Completed 04/10/2016 ZOSTER VACCINES Completed 07/25/2019, 04/05, 05/24/2010 HEPATITIS A VACCINES Aged Out No long er eligible based on patient's age to complete this topic HIB VACCINES Aged Out No longer eligi ble based on patient's age to complete this topic MENINGOCOCCAL VACCINES (ACWY) Aged Out No longer eligible based on patient's age to complete this topic MENINGOCOCCAL VACCINES (B) Aged Out N o longer eligible based on patient's age to complete this topic Medical Devices Not on file Procedures Procedure Name Priority Date/Time Associated Diagnosis Comments OUTSIDE PATHOLOGY 07/15/2025 OUTSIDE IMAGING 07/15/2025 OUTSIDE IMAGING 07/15/2025 OUTSIDE IMAGING 07/15/2025 OUTSIDE IMAGING 07/15/2025 OUTSIDE IMAGING 07/15/2025 OUTSIDE PROCEDURE 07/15/2025 OUTSIDE PROCEDURE 07/15/2025 HISTORICAL LAB Routine 07/16/2014 10:48 AM EDT BD DXA AXIAL (SPINE) WITH HIP Routine 03/30/2011 2:52 PM EDT from Last 3 Months or Most Recently Relevant to Health Maintenance Results * Outside Imaging Report Only (07/15/2025) us Scanning Interface Provider IMG XR CHEST Kathy l Result * Outside Imaging Report Only (07/15/2025) us Scanning Interface Provider IMG XR CHEST Kathy l Result * Outside Imaging Report Only (07/15/2025) us Scanning Interface Provider IMG XR CHEST Kathy l Result * Outside Imaging Report Only (07/15/2025) us Scanning Interface Provider IMG XR CHEST Kathy l Result * Outside Imaging Report Only (07/15/2025) us Scanning Interface Provider IMG XR CHEST Kathy l Result * Outside Procedure (07/15/2025) us Scanning Interface Provider PROCEDURE/MINOR SURG ICAL PERFORMABLES Final Result * Outside Procedure (07/15/2025) us Scanning Interface Provider PROCEDURE/MINOR SURG ICAL PERFORMABLES Final Result * Outside Pathology (07/15/2025) us Scanning Interface Provider PATHOLOGY ORDERABLES Final Result * (ABNORMAL) Historical Lab (07/16/2014 10:48 AM EDT) CHOLESTEROL, TOTAL 205(Abnormall y H) 125 - 200 mg/dL [facility] HDL CHOLESTEROL 44(Abnormally L) > OR = 46 mg/dL [facility] TRIGLYCERIDES 406(Abnormall y H) <150 mg/dL [facility] LDL-CHOLESTEROL SEE NOTE <130 mg/dL (calc) [facility] Comment: LDL cholesterol not calculated. Triglyceride levels greater than 400 mg/dL invalidate calculated LDL results. Desirable range <100 mg/dL for patients with CHD or diabetes and <70 mg/dL for diabetic patients with known heart disease. CHOL/HDLC RATIO 4.7 < OR = 5.0 (calc) [facility] NON-HDL CHOLESTEROL 161(Abnormall y H) mg/dL (calc) [facility] Comment: Target for non-HDL cholesterol is 30 mg/dL higher than LDL cholesterol target. PROTEIN, TOTAL 6.9 6.1 - 8.1 g/dL [facility] ALBUMIN 4.4 3.6 - 5.1 g/dL [facility] GLOBULIN 2.5 1.9 - 3.7 g/dL (calc) [facility] ALBUMIN/GLOBULIN RATIO 1.8 1.0 - 2.5 (calc) [facility] BILIRUBIN, TOTAL 0.8 0.2 - 1.2 mg/dL [facility] BILIRUBIN, DIRECT 0.1 < OR = 0.2 mg/dL [facility] BILIRUBIN, INDIRECT 0.7 0.2 - 1.2 mg/dL (calc) [facility] ALKALINE PHOSPHATASE 65 33 - 130 U/L [facility] AST 17 10 - 35 U/L [facility] ALT 20 6 - 29 U/L [facility] GLUCOSE 91 65 - 99 mg/dL [facility] Comment: Fasting reference interval UREA NITROGEN (BUN) 15 7 - 25 mg/dL [facility] CREATININE 0.68 0.50 - 0.99 mg/dL [facility] Comment: For patients >49 years of age, the reference limit for Creatinine is approximately 13% higher for people identified as -Z[place]ian. eGFR NON-AFR. ROMANIAN 89 > OR = 60 mL/min/1 .73m2 [facility] eGFR 103 > OR = 60 mL/min/1 .73m2 [facility] BUN/CREATININE RATIO NOT APPLICABLE 6 - 22 (calc) [facility] SODIUM 139 135 - 146 mmol/L [facility] POTASSIUM 4.2 3.5 - 5.3 mmol/L [facility] CHLORIDE 103 98 - 110 mmol/L [facility] CARBON DIOXIDE 24 19 - 30 mmol/L [facility] CALCIUM 9.5 8.6 - 10.4 mg/dL [facility] T-4, FREE 1.6 0.8 - 1.8 ng/dL [facility] TSH, 3RD GENERATION 1.58 0.40 - 4.50 mIU/L [facility] 07/16/2014 10:4 8 AM EDT 07/16/2014 10:49 AM EDT Narrative [facility] - 07/17/2014 7:50 AM EDT FASTING COLLECTION DATE: RECEIVED DATE: SPECIMEN REPORTED DATE: Unless otherwise noted,Test Performed At: [employer] [address] [place] [address], [id number], ASTER RUIZ M.D. us Festus Jacques MD LAB BLOOD ORDERABLES F inal Result [facility] [address] [place] [id number], [facility] * DXA Axial (Spine With Hip) (03/30/2011 2:52 PM EDT) Anatomical Region Laterality Modality Bone Density Bone Density 03/28/2011 1:41 PM EDT Narrative 03/30/2011 2:52 PM EDT Exam Number: [id number] Report Status: Final Type: QDR 1 OR MORE LOCATIONS Date/Time: 03/28/2011 13:41 Exam Code: B410 Ordering Provider: FESTUS JACQUES MD Associated Reports: [id number]: QDR FOREARM REPORT: Bone Density Report Name: DESIREE DELCID Age: 65 Sex: Female Ethnicity: White Date of : 1945 Indication: postmenopause Referring Physician: FESTUS JACQUES MD Study: Bone densitometry was performed. Exam Date: March 28, 2011 Accession number: [id number] Bone Density: Region BMD T-Score Z-Score Classification AP Spine (L1, L2) 1.006 0.2 1.9 Normal Femoral Neck (Left) 0.739 -1.0 0.6 Normal Total Hip (Left) 0.734 -1.7 -0.4 Osteopenic Total Forearm (Left) 0.556 -0.2 1.6 Normal 1/3 Forearm (Left) 0.658 -0.5 1.3 Normal UD Forearm (Left) 0.441 0.6 1.9 Normal World Health Organization criteria for BMD interpretation classify patients as: Normal (T-score at or above -1.0), Osteopenic (T-score between -1.0 and -2.5),or Osteoporotic (T-score at or below -2.5). Previous Exams: Region Exam Age BMD T-Score BMD Change BMD Change Date g/cm2 vs Baseline vs Previous AP Spine(L1, L2) 03/28/2011 65 1.006 0.2 35.1%# 19.7%# 08/26/2007 62 0.840 -1.3 12.9%* 12.9%* 04/21/2005 59 0.745 -2.1 Total Hip(Left) 03/28/2011 65 0.734 -1.7 16.6%# 7.5%# 08/26/2007 62 0.683 -2.1 8.5%* 8.5%* 04/21/2005 59 0.629 -2.6 Femoral Neck(Left) 03/28/2011 65 0.739 -1.0 19.1%# 0.0%# 08/26/2007 62 0.738 -1.0 19.1%* 19.1%* 04/21/2005 59 0.620 -2.1 Medical History: Menopause Age: 52 Interpretation: The patient has bone density consistent with OSTEOPENIA. When comparing the BMD to the prior study of 08/26/07, there is: A significant increase in the lumbar spine density. A significant increase in the total hip density. No significant change in the femoral neck density. Note: L3 and 4 excluded from analysis as previously. Probable degenerative changes left hip. Reported by: DEMIAN BRIAN MD on 03/30/2011 2:47:00 PM. This report was electronically signed by DEMIAN BRIAN MD(T) RADIOLOGISTS: SIGNATURES: MD SNEHAL(T), DEMIAN BRIAN MD(T), DEMIAN HEALY Finalized on: 03/30/2011 14:52 Procedure Note Sys, Conversion Provider Not In - 03/21/2015 Exam Number: [id number] Report Status: Final Type: QDR 1 OR MORE LOCATIONS Date/Time: 03/28/2011 13:41 Exam Code: B410 Ordering Provider: FESTUS JACQUES MD Associated Reports: [id number]: QDR FOREARM REPORT: Bone Density Report Name: DESIREE DELCID Age: 65 Sex: Female Ethnicity: White Date of : 1945 Indication: postmenopause Referring Physician: FESTUS JACQUES MD Study: Bone densitometry was performed. Exam Date: March 28, 2011 Accession number: [id number] Bone Density: Region BMD T-Score Z-Score Classification AP Spine (L1, L2) 1.006 0.2 1.9 Normal Femoral Neck (Left) 0.739 -1.0 0.6 Normal Total Hip (Left) 0.734 -1.7 -0.4 Osteopenic Total Forearm (Left) 0.556 -0.2 1.6 Normal 1/3 Forearm (Left) 0.658 -0.5 1.3 Normal UD Forearm (Left) 0.441 0.6 1.9 Normal World Health Organization criteria for BMD interpretation classify patients as: Normal (T-score at or above -1.0), Osteopenic (T-score between -1.0 and -2.5),or Osteoporotic (T-score at or below -2.5). Previous Exams: Region Exam Age BMD T-Score BMD Change BMD Change Date g/cm2 vs Baseline vs Previous AP Spine(L1, L2) 03/28/2011 65 1.006 0.2 35.1%# 19.7%# 08/26/2007 62 0.840 -1.3 12.9%* 12.9%* 04/21/2005 59 0.745 -2.1 Total Hip(Left) 03/28/2011 65 0.734 -1.7 16.6%# 7.5%# 08/26/2007 62 0.683 -2.1 8.5%* 8.5%* 04/21/2005 59 0.629 -2.6 Femoral Neck(Left) 03/28/2011 65 0.739 -1.0 19.1%# 0.0%# 08/26/2007 62 0.738 -1.0 19.1%* 19.1%* 04/21/2005 59 0.620 -2.1 Medical History: Menopause Age: 52 Interpretation: The patient has bone density consistent with OSTEOPENIA. When comparing the BMD to the prior study of 08/26/07, there is: A significant increase in the lumbar spine density. A significant increase in the total hip density. No significant change in the femoral neck density. Note: L3 and 4 excluded from analysis as previously. Probable degenerative changes left hip. Reported by: DEMIAN BRIAN MD on 03/30/2011 2:47:00 PM. This report was electronically signed by DEMIAN BRIAN MD(T) RADIOLOGISTS: SIGNATURES: MD SNEHAL(T), DEMIAN BRIAN MD(T), DEMIAN HEALY Finalized on: 03/30/2011 14:52 Festus Jacques MD IMG BD BONE DENSITY DE XA Final Result from Last 3 Months or Most Recently Relevant to Health Maintenance Insurance MEDICARE PART A & B [facility] MEDEX SUPPLEMENT MEDICARE PART A & B [employer] MEDEX SUPPLEMENT MEDICARE PART A & B [employer] MEDEX SUPPLEMENT MEDICARE PART A & B [employer] MEDEX SUPPLEMENT MEDICARE PART A & B [employer] SUPPLEMENT MEDICARE PART A & B [employer] MEDEX SUPPLEMENT MEDICARE PART A & B [employer] MED[employer] SUPPLEMENT MEDICARE PART A & B [employer] MEDEX SUPPLEMENT MEDICARE PART A & B [employer] MEDEX SUPPLEMENT Care Teams Typesetters Printer Relationship Specialty Start Date End Date Rao Rizzo MD [address] [place] [id number] PCP - General Family Medicine 05/03/17 Cody Morris MD [address] [facility] [address] [place] [phone] [email or web address] 11/27/24 Kathy Parker MD [address] [facility] [address] [place] [address] [email or web address] 11/27/24 Luisito Yeung MD, MPH [address] [place], [place] [address] [place] [address] [email or web address] 11/27/24 Additional Source Comments The information contained in this document represents components of the legal health record. It is not the complete legal health record.[facility]
--- OUTSIDE RECORDS SUMMARY | 2025-10-07 18:30 | XMS_ITS | Patient Health Record ---
Author Organization [facility] [place] Address [address] [place] [address] Care Team Providers Care Emergency Room Technician Name Role Phone Rao Rizzo MD Primary Care Provider Carlos Shelton Unavailable [phone] Damien Ugalde Unavailable [phone] Cate Jarquin Unavailable [phone] Allergies Allergen (clinical drug ingredient) Drug/Non Drug Allergy documented on EMR Reaction Allergy Type Onset Date Status Ether ether (uncoded) Unknown Allergy Acti ve septocaine (uncoded) never wears off Allergy Active Aleve Unknown Drug Allergy Active amoxicillin Amoxicillin itchy Drug Allergy Act gutierrez mepivacaine Carbocaine can't remember Drug Allergy Active clindamycin Clindamycin HCl diarrhea Drug Allergy Active hydromorphone Hydromorphone HCl Unknown Drug Allergy Active codeine Codeine Unknown Drug Allergy Active Tegaderm Unknown Allergy Active Reason For Referral No Information Medications Medication SIG (Take, Route, Frequency, Duration) Notes Start Date End Date Status Methenamine Hippurate 1 GM TAKE 1 TABLET BY MOUTH 2 TIMES A DAY WITH MEALS. Oral; Duration: 90 Days Active TheraCran Not-Taking Cephalexin 500 MG 1 capsule Orally every 6 hrs Not-Taking Cranberry Not-Taking Eliquis Not-Taking Fish Oil Not-Taking Vitamin B Complex No t-Taking Caltrate 600+D Activ e Gabapentin 700 Orally Not-T aking Centrum Silver Activ e Synthroid 7 daysa Active Tylenol PRN Active Ciclopirox Olamine 0.77 % 1 application Externally Twice a day to skin of feet including between the toes; Duration: 30 days Active Ibuprofen PRN Active Estradiol 0.1 MG/GM as directed Vaginal Active Probiotic Not-Taking Systane Active Fish Oil Not-Taking Cefpodoxime Proxetil Active CoQ-10 200 mg Once a day Not-T aking Probiotic Active Atorvastatin Calcium 10 MG 1 tablet Orally Once a day Active Tamsulosin HCl Not-T aking oxyBUTYnin Not-Takin g Vega Natural Pain Relieving PRN Not-Taking Aspirin 81 MG 1 tablet Orally Once a day 3 x per wk Not-Taking Co Q 10 Not-Taking Lipitor 10 MG 1 tablet Orally Once a day Atorvastatin Not-Taking Immunizations Vaccine Route Administration Date Status Comme nts Influenza Unknown 08/05/2021 Administered Influenza Unknown 08/05/2024 Administered Influenza Unknown 08/05/2025 Administered COVID-19 Pfizer BioNTech Vaccine Unknown 08/22/2021 Administered 1st 12/02/20 2nd 12/23/20 Social History Tobacco Use: Social History Observation Description Date Details (start date - stop date) Never Smoker NA - NA Tobacco use other than smoking: Question Answer Notes Are you an other tobacco user? No Tobacco Control (Standard) Question Answer Notes Tobacco use: Nonsmoker Additional Findings: Tobacco non-user Current no nsmoker AUDIT-C (Standard) Question Answer Notes Did you have a drink containing alcohol in the p ast year? No Points 0 Interpretation Negative Problems Problem Type SNOMED Code ICD Code Onset Dates Problem Status W/U Status Risk Notes Problem Bilateral atherosclerosis of arteries of lower limbs (disorder) ([id number] ) Atherosclerosis of [place] artery of both lower extremities, with unspecified presence of clinical manifestation (I70.203) Active confirmed Q7(A), Q8(2B), Q9(1B,2 C) Vital Signs Blood pressure diastolic 68 mm Hg 09/18/2025 Height 5 ft 2 in in 09/18/2025 Blood pressure systolic 127 mm Hg 09/18/2025 Weight 157 lbs 09/18/2025 BMI 28.71 kg/m2 09/18/2025 Procedures Procedure Date Ordered Date Performed Result Body Sit e 03740-UXZFGCA NAIL, 6 OR MORE 10/21/2024 N/A 54994-TLGP SKIN LESIONS, 2 TO 4 10/21/2024 N/A 18857-RIHMHVN NAIL, 6 OR MORE 02/09/2025 N/A 37942-PQNC SKIN LESIONS, 2 TO 4 02/09/2025 N/A 44531-QOBSPJL NAIL, 6 OR MORE 05/05/2025 N/A 43488-AODA SKIN LESIONS, 2 TO 4 05/05/2025 N/A 09543-ATUSMWD NAIL, 6 OR MORE 07/14/2025 N/A 57384-RRGH SKIN LESIONS, 2 TO 4 07/14/2025 N/A 68979-BDHPZEP NAIL, 6 OR MORE 09/18/2025 N/A 01750-NSFR SKIN LESIONS, 2 TO 4 09/18/2025 N/A Encounters Encounter Location Date Provider Diagnosis [address] [address] 10/21/2024 Carlos Brandin Atherosclerosis of [place] artery of both lower extremities, with unspecified presence of clinical manifestation I70.203 ; Tinea unguium B35.1 ; Pain in right toe(s) M79.674 and Pain in left toe(s) M79.[address] [address] 12/12/2024 Carlos Brandin Tinea pedis of both feet B35.[address] [address] 02/09/2025 Carlos Brandin Tinea pedis of both feet B35.3 ; Atherosclerosis of [place] artery of both lower extremities, with unspecified presence of clinical manifestation I70.203 ; Tinea unguium B35.1 ; Pain in right toe(s) M79.674 and Pain in left toe(s) M79.[address] [address] 03/09/2025 Carlos Brandin Pain in left toe(s) M79.675 ; Other hammer toe(s) (acquired), left foot M20.42 and Arthritis of joint of lesser toe, left M19.[address] [address] 05/05/2025 Carlos Brandin Tinea pedis of both feet B35.3 ; Atherosclerosis of [place] artery of both lower extremities, with unspecified presence of clinical manifestation I70.203 ; Tinea unguium B35.1 ; Pain in right toe(s) M79.674 and Pain in left toe(s) M79.[address] [address] 07/14/2025 Carlos Ghotra Atherosclerosis of [place] artery of both lower extremities, with unspecified presence of clinical manifestation I70.203 ; Tinea unguium B35.1 ; Pain in right toe(s) M79.674 and Pain in left toe(s) M79.[address] [address] 09/18/2025 Carlos Ghotra Atherosclerosis of [place] artery of both lower extremities, with unspecified presence of clinical manifestation I70.203 ; Tinea unguium B35.1 ; Pain in right toe(s) M79.674 and Pain in left toe(s) M79.[address] [address] 11/06/2024 Carlos Ghotra [address] [address] 12/10/2024 Carlos Ghotra [address] [address] 12/12/2024 Carlosfab Ghotra [address] [address] 02/09/2025 Carlos Ghotra Assessments Encounter Date Diagnosis (ICD Code) Assessment Notes Treatment Notes Treatment Clinical Notes Section Notes 10/21/2024 Atherosclerosis of [place] artery of both lower extremities, with unspecified presence of clinical manifestation (ICD-10 - I70.203) Q7(A), Q8(2B), Q9(1B,2C) 12/12/2024 Tinea pedis of both feet (ICD-10 - B35.3) 02/09/2025 Atherosclerosis of [place] artery of both lower extremities, with unspecified presence of clinical manifestation (ICD-10 - I70.203) Q7(A), Q8(2B), Q9(1B,2C) 02/09/2025 Tinea pedis of both feet (ICD-10 - B35.3) 03/09/2025 Pain in left toe(s) (ICD-10 - M79.675) 03/09/2025 Other hammer toe(s) (acquired), left foot (ICD-10 - M20.42) 05/05/2025 Atherosclerosis of [place] artery of both lower extremities, with unspecified presence of clinical manifestation (ICD-10 - I70.203) Q7(A), Q8(2B), Q9(1B,2C) 05/05/2025 Tinea pedis of both feet (ICD-10 - B35.3) 07/14/2025 Tinea unguium (ICD-10 - B35.1) 07/14/2025 Atherosclerosis of [place] artery of both lower extremities, with unspecified presence of clinical manifestation (ICD-10 - I70.203) Q7(A), Q8(2B), Q9(1B,2C) 09/18/2025 Tinea unguium (ICD-10 - B35.1) 09/18/2025 Atherosclerosis of [place] artery of both lower extremities, with unspecified presence of clinical manifestation (ICD-10 - I70.203) Q7(A), Q8(2B), Q9(1B,2C) 07/14/2025 Pain in right toe(s) (ICD-10 - M79.674) 09/18/2025 Pain in right toe(s) (ICD-10 - M79.674) 03/09/2025 Arthritis of joint of lesser toe, left (ICD-10 - M19.072) 05/05/2025 Tinea unguium (ICD-10 - B35.1) 02/09/2025 Tinea unguium (ICD-10 - B35.1) 10/21/2024 Tinea unguium (ICD-10 - B35.1) 10/21/2024 Pain in right toe(s) (ICD-10 - M79.674) 02/09/2025 Pain in right toe(s) (ICD-10 - M79.674) 05/05/2025 Pain in right toe(s) (ICD-10 - M79.674) 09/18/2025 Pain in left toe(s) (ICD-10 - M79.675) 07/14/2025 Pain in left toe(s) (ICD-10 - M79.675) 05/05/2025 Pain in left toe(s) (ICD-10 - M79.675) 10/21/2024 Pain in left toe(s) (ICD-10 - M79.675) 02/09/2025 Pain in left toe(s) (ICD-10 - M79.675) Plan Of Treatment Pending Test Test Name Order Date X ray : Foot, right 3V 02/26/2023 X ray : Foot, right 3V 03/26/2023 79623-ZAGRAVC NAIL, 6 OR MORE 10/21/2024 47406-ULFNAXG NAIL, 6 OR MORE 07/31/2018 52630-PESAEAH NAIL, 6 OR MORE 10/02/2018 32904-PELYPRT NAIL, 6 OR MORE 02/09/2025 65654-TCYUXJC NAIL, 6 OR MORE 05/05/2025 09932-QNOCBLU NAIL, 6 OR MORE 07/14/2025 97536-PEGHEMH NAIL, 6 OR MORE 09/18/2025 12047-KJSYHBJ NAIL, 6 OR MORE 07/20/2011 31817-YGNYJCI NAIL, 6 OR MORE 09/25/2011 76059-IOLAHGK NAIL, 6 OR MORE 01/04/2012 82816-ZKMUSPZ NAIL, 6 OR MORE 02/01/2012 97022-KAWENWC NAIL, 6 OR MORE 04/25/2012 36688-WKMDZMT NAIL, 6 OR MORE 07/01/2012 33552-MTZDEKY NAIL, 6 OR MORE 09/04/2012 67677-IXEEGBA NAIL, 6 OR MORE 05/22/2013 20949-KOAKCJE NAIL, 6 OR MORE 08/20/2013 41778-LPXOUXQ NAIL, 6 OR MORE 11/19/2013 72650-LUVEYOV NAIL, 6 OR MORE 02/09/2014 57770-OBXMHNX NAIL, 6 OR MORE 04/16/2014 33572-FQMLZVJ NAIL, 6 OR MORE 06/24/2014 29331-LVRYCUS NAIL, 6 OR MORE 08/27/2014 46489-GLYOGQZ NAIL, 6 OR MORE 10/28/2014 74896-HHLIMPD NAIL, 6 OR MORE 02/11/2015 25947-IGIDZLJ NAIL, 6 OR MORE 04/21/2015 22327-VETXAHQ NAIL, 6 OR MORE 06/30/2015 27065-EWSBWQJ NAIL, 6 OR MORE 09/13/2015 26762-NFVPEOC NAIL, 6 OR MORE 04/05/2016 75906-DZIDWJA NAIL, 6 OR MORE 06/14/2016 43208-NLJFEQJ NAIL, 6 OR MORE 09/18/2016 10199-XESOUQM NAIL, 6 OR MORE 04/04/2017 20779-YANELBK NAIL, 6 OR MORE 06/11/2017 84214-SKCXYSW NAIL, 6 OR MORE 08/30/2017 96591-DWVCWMB NAIL, 6 OR MORE 03/13/2018 21744-KYAOFGM NAIL, 6 OR MORE 05/16/2018 47199- Debride <25 sq cm 09/25/2012 18264- Debride <25 sq cm 04/25/2012 40064- Debride <25 sq cm 05/29/2012 76248- Debride <25 sq cm 02/01/2012 92891- Debride <25 sq cm 03/04/2012 93956- Debride <25 sq cm 03/27/2012 16553- Debride <25 sq cm 01/04/2012 35423- Debride <25 sq cm 09/25/2011 68639- Debride <25 sq cm 07/20/2011 30394- Debride <25 sq cm 08/21/2011 00203-URSC SKIN LESIONS, 2 TO 4 09/18/20 25 40224-GFZP SKIN LESIONS, 2 TO 4 07/14/20 25 92405-YTAS SKIN LESIONS, 2 TO 4 05/05/20 25 08411-ZSJN SKIN LESIONS, 2 TO 4 02/10/20 25 21754-NGVE SKIN LESIONS, 2 TO 4 04/17/20 19 66888-FQBL SKIN LESIONS, 2 TO 4 02/07/20 19 44944-VARN SKIN LESIONS, 2 TO 4 10/21/20 24 08973-TKGA SKIN LESIONS, 2 TO 4 05/12/20 20 31223-DZDV SKIN LESIONS, 2 TO 4 07/21/20 20 94089-MMHT SKIN LESIONS, 2 TO 4 09/22/20 20 32177-CWII SKIN LESIONS, 2 TO 4 01/21/20 21 89803-RWJS SKIN LESIONS, 2 TO 4 01/28/20 21 13565-GIAF SKIN LESIONS, 2 TO 4 03/31/20 21 92484-BFFB SKIN LESIONS, 2 TO 4 06/16/20 21 84982-UFVG SKIN LESIONS, 2 TO 4 08/31/20 21 95894-Xtryrpzsc, Toes 09/03/2019 02779- Nail Unit Biopsy 07/31/2018 X ray : Ankle, right 3V 04/17/2019 Next Appt Details Provider Name:Carlos Santy Ghotra , 11/20/2025 12:00:00 PM, [address] [place] [address], [phone], Provider Name:Carlos Santy Ghotra , 02/12/2026 11:00:00 AM, [address] [place] [address], [phone], Insurance Providers Payer Name Payer Address Payer Phone Subscriber Number Group Number Insured Name Patient Relationship to Insured Coverage Start Date Coverage End Date Medicare National [employer] [address] [place] [address] [id number] March, Desiree Self - patient is the insured 7 [employer] [address] [place] [address] [id number] March, Desiree Self - patient is the insured Medical (General) History Medical History History ICD Code back, hip, knee pain transfusions thyroid disorder paralysis osteoporosis mumps measles joint implants/screws chicken pox cancer Cholesterol Surgical History Surgery Date(Month/Year) foot surgery 1960 right hip replacement lumpectomy mastectomy tonsillectomy 1954 tooth implant 2011 left hip replacement 2013 triple arthrodesis-fusion of 3 bones in foot cataract surgery-right eye 08/26/2019 chemo and radiation bladder surgery, TURPT, D and C 11/2024 Hospitalization History Reason Date(Month/Year) [facility]- hysteroscopy and D and C 06/2025 [facility]- neutropenia 01/30-02/06/25 [facility]- neutropenia 15-12/25/24 vertigo 07/16/11
== END 2025-10-07 15:34 | disposition home or self-care (01) ==
LOC: HO.HAP 15:33
PROVIDERS: Visit Provider Family Medicine
DX: H90.A21 Sensorineural hearing loss, unilateral, right ear, with restricted hearing on the contralateral side (principal); H90.A32 Mixed conductive and sensorineural hearing loss, unilateral, left ear with restricted hearing on the contralateral side
CPT/HCPCS: 92593; V5267